=== PATIENT | male | born 1955 | race Caucasian/White ===

== ENCOUNTER 2016-08-01 22:03 | Inpatient (IN) ==
[2016-08-01] MEDS ORDERED: DECADRON 4 MG/ML SDV IM STA (22:20)
[2016-08-01] MEDS ORDERED: DUONEB NEB STA (22:20)
--- NOTE | 2016-08-01 22:25 | ED.PDOC ---
General ED Provider: Dr. TOMÁS STARK Chief Complaint: Shortness of Air Stated Complaint: Coughing congeted for couple day, getting sputum, more shortness of breath. Time Seen by Physician: 22:23 Mode of Arrival: Walk-In Information Source: Patient Primary Care Provider: RACHEL JULIEN Nursing and Triage Documentation Reviewed and Agree: Yes Respiratory Complaint Exam - Shortness of Air Complaint/Exam Symptoms Are: Still present Timing: Constant Initial Severity: Moderate Current Severity: Mild Character: Reports: Dyspnea at rest, Dyspnea on exertion Aggravating: Reports: Movement, URI Alleviating: Reports: None Associated Signs and Symptoms: Reports: Cough, Nasal congestion. Denies: Wheezing, Chest pain with cough, Chest pain, Fever, Chills, Diaphoresis, Dizziness, Calf pain, Calf swelling, Edema, Rapid breathing, Labored breathing, Decreased intake Related History: Reports: Similar episode History of Healthcare-Acquired Pneumonia: No Pulmonary Embolism Risk Factors: Reports: None Cardiac Risk Factors: Reports: CAD, Smoking, Elevated lipids Pseudomonas Risk Factors: Reports: None Tuberculosis Risk Factors: Reports: None Home Oxygen Use: Yes Recent Stress Test: No Recent Echo/LV Function: No Respiratory Distress: None Stridor Present: No Tracheal Deviation: No Subcutaneous Emphysema: No Accessory Muscle Use: No Retractions: Not Present Diminished Breath Sounds: No Prolonged Expiratory Phase: No Unable to Speak Full Sentences: No Fatigue: No Leg Swelling: No Differential Diagnoses: Pneumonia, Bronchitis Review of Systems - Review Of Systems Constitutional: Reports: Malaise, Weakness Eyes: Reports: No symptoms Ears, Nose, Mouth, Throat: Reports: No symptoms Respiratory: Reports: Cough, Short of air Cardiac: Reports: No symptoms GI: Reports: No symptoms : Reports: No symptoms Musculoskeletal: Reports: No symptoms Skin: Reports: No symptoms Neurological: Reports: No symptoms Endocrine: Reports: No symptoms Hematologic/Lymphatic: Reports: No symptoms All Other Systems: Reviewed and Negative Past Medical History - Past Medical History Previously Healthy: No Endocrine: Reports: DM 2 Cardiovascular: Reports: Hypertension Respiratory: Reports: COPD, Asthma Hematological: Reports: None Gastrointestinal: Reports: None Genitourinary: Reports: None Neuro/Psych: Reports: None Musculoskeletal: Reports: Arthritis, Back Pain Cancer: Reports: None Other Pertinent Past Medical History: HEART MURMUR/NECK PROBLEMS. - Surgical History General Surgical History: Reports: None - Family History Family History: Reports: Unknown - Social History Smoking Status: Current every day smoker Smoking Cessation Counseling Time: > 10 min Hx Substance Use: No Alcohol Screening: None - Immunizations Tetanus Shot up to Date: No (unsure) Physical Exam - Physical Exam Appearance: Ill-appearing Ill-appearing: Mild Eyes: JACIEL, EOMI, Conjunctiva clear ENT: Ears normal, Nose normal, Oropharynx normal Respiratory: Breath sounds diminished, Crackles, Wheezes Cardiovascular: RRR, Pulses normal, No rub, No murmur GI/: Soft, Nontender, No masses, Bowel sounds normal, No Organomegaly Musculoskeletal: Normal strength, ROM intact, No edema, No calf tenderness Skin: Warm, Dry, Normal color Neurological: Sensation intact, Motor intact, Reflexes intact, Cranial nerves intact, Alert, Oriented Psychiatric: Affect appropriate, Mood appropriate Interpretation - Radiology Interpretation Radiology Interpretation By: Radiologist Radiology Results: Positive Exam Interpreted: CT Scan Critical Care Note - Critical Care Note Total Time (mins): 0 Course - Course Hematology/Chemistry: 08/01/16 22:40 08/01/16 22:40 Orders, Labs, Meds: Lab Review 08/01/16 08/01/16 08/01/16 22:20 22:30 22:40 WBC 10.95 H RBC 4.94 Hgb 15.4 Hct 45.5 MCV 92.1 MCH 31.2 H MCHC 33.8 RDW Coeff of Kar 12.5 Plt Count 235 Immature Gran % (Auto) 0.6 Neut % (Auto) 73.7 Lymph % (Auto) 11.3 [place] % (Auto) 13.7 H Eos % (Auto) 0.4 Baso % (Auto) 0.3 Immature Gran # (Auto) 0.1 Neut # 8.1 H Lymph # 1.2 [place] # 1.5 Eos # 0.0 Baso # 0.0 Puncture Site Rb O2 Saturation 93.0 L ABG pH 7.363 ABG pCO2 53.1 H ABG pO2 70.0 L ABG HCO3 30.2 H ABG Total CO2 32 H ABG Base Excess 5 H Navi Test + O2 Delivery Device Nc Oxygen Liter Flow 2.50 FiO2 % 30.0 Sodium 137 Potassium 3.9 Chloride 99 Carbon Dioxide 31 Anion Gap 10.9 BUN 12 Creatinine 0.82 Estimated GFR (MDRD) 96.00 BUN/Creatinine Ratio 14.63 Glucose 281 H Lactic Acid 11.3 Calcium 8.9 Total Bilirubin 0.38 AST 20 ALT 21 Alkaline Phosphatase 94 Total Creatine Kinase 190 CK-MB (CK-2) 4.6 H CK-MB (CK-2) % 2.19639 Troponin I 0.0110 Total Protein 6.6 Albumin 3.5 Globulin 3.1 Albumin/Globulin Ratio 1.13 Procalcitonin < 0.05 Influenza A (Rapid) Negative Influenza B (Rapid) Negative Orders Category Date Time Status ABG DRAW REQUEST Stat CARDIO 08/01/16 22:21 Completed NEBULIZER TREATMENT Stat CARDIO 08/01/16 22:21 Completed ED IV/MEDIPORT/POWERPORT .ONCE EMERGENCY 08/01/16 22:56 Active ABG Stat LAB 08/01/16 22:20 Completed BLOOD CULTURE Stat LAB 08/01/16 22:40 Received CBC W/ AUTO DIFF Stat LAB 08/01/16 22:40 Completed COMPREHENSIVE METABOLIC PANEL Stat LAB 08/01/16 22:40 Completed CREATINE KINASE Stat LAB 08/01/16 22:40 Completed LACTIC ACID Stat LAB 08/01/16 22:40 Completed PROCALCITONIN Stat LAB 08/01/16 22:40 Completed RAPID FLU A/B Stat LAB 08/01/16 22:30 Completed SPUTUM CULTURE Stat LAB 08/01/16 22:56 Uncollected TROPONIN I Stat LAB 08/01/16 22:40 Completed 0.9 % Sodium Chloride [Saline Flush] MEDS 08/01/16 22:56 Ordered 1 syr IVF PRN PRN Ceftriaxone Sodium [Rocephin] 1 gm MEDS 08/01/16 22:56 Discontinued 0.9 % Sodium Chloride [Sodium Chloride] 100 ml IV ONCE Dexamethasone 4 mg/ml Inj [Decadron 4 mg/ml Sdv] MEDS 08/01/16 22:20 Discontinued 4 mg IM ONCE STA Ipratropium/Albuterol Neb [Duoneb] MEDS 08/01/16 22:20 Discontinued 1 vial NEB ONCE STA CT CHEST W/O CONTRAST Stat RADS 08/01/16 22:20 Completed Medications Generic Name Dose Route Start Last Admin Trade Name Freq PRN Reason Stop Dose Admin Sodium Chloride 1 syr 08/01/16 22:56 Saline Flush IVF PRN PRN To flush IV Discontinued Medications Generic Name Dose Route Start Last Admin Trade Name Freq PRN Reason Stop Dose Admin Albuterol/Ipratropium 1 vial 08/01/16 22:20 08/01/16 22:50 Duoneb NEB 08/01/16 22:21 1 vial ONCE STA Administration Dexamethasone Sodium Phosphate 4 mg 08/01/16 22:20 08/01/16 22:38 Decadron 4 Mg/Ml Sdv IM 08/01/16 22:21 4 mg ONCE STA Administration Ceftriaxone Sodium 1 gm/ 100 mls @ 100 mls/hr 08/01/16 22:56 Sodium Chloride IV 08/01/16 23:55 ONCE STA Vital Signs: Temp Pulse Resp BP Pulse Ox 08/01/16 22:04 99.5 F 115 H 22 135/72 90 L Departure - Departure Time of Disposition: 00:06 Disposition: ADMITTED INPATIENT Discharge Problem: Pneumonia Qualifiers: Pneumonia type: due to unspecified organism Laterality: right Lung location: lower lobe of lung Qualifier Code: (J18.1) Lobar pneumonia, unspecified organism Instructions: Community Acquired Pneumonia (ED) Condition: Stable Pt referred to PMD for follow-up: No Allergies/Adverse Reactions: Allergies cephalexin monohydrate [From [employer]] Adverse Reaction (Verified 08/01/16 22:10) Rash Home Medications: Ambulatory Orders Albuterol Sulfate [Proair Hfa] 2 puff QID PRN 10/14/13 Metformin HCl [Metformin HCl] 1 tab PO BID 10/14/13 Empagliflozin [Jardiance] 25 mg PO DAILY 06/11/14 Tiotropium [employer] [Spiriva] 1 cap IH DAILY 06/11/14 Aspirin [Aspirin Chewable] 81 mg PO DAILYWM 08/01/15 Budesonide/Formoterol Fumarate [Symbicort 160-4.5 Mcg Inhaler] 2 puff IH BID Diltiazem HCl 60 mg PO BID 08/01/15 Losartan Potassium [Cozaar] 50 mg PO DAILY 08/01/15 Montelukast Sodium 10 mg PO DAILY 08/01/15 Disposition Discussed With: Patient, Family
[2016-08-01 22:45] LABS: BASOPHILS % (AUTO) 0.3 % (0.0-3.0); EOSINOPHILS % (AUTO) 0.4 % (0.0-7.0); HEMATOCRIT 45.5 % (42.0-52.0); HEMOGLOBIN 15.4 g/dl (14.0-18.0); IMMATURE GRANULOCYTE % (AUTO) 0.6 % (0.0-5.0); LYMPHOCYTES # (AUTO) 1.2 K/uL (0.60-3.4); LYMPHOCYTES % (AUTO) 11.3 (10.0-50.0); MEAN CORPUSCULAR HEMOGLOBIN 31.2 pg (27.0-31.0); MEAN CORPUSCULAR HGB CONC 33.8 (31.8-35.4); MEAN CORPUSCULAR VOLUME 92.1 fl (80.0-94.0); MONOCYTES # (AUTO) 1.5 K/uL (0.4-2.0); MONOCYTES % (AUTO) 13.7 (0-10); NEUTROPHILS # (AUTO) 8.1 K/ul (2.0-6.9); NEUTROPHILS % (AUTO) 73.7; PLATELET COUNT 235 10^3/uL (140-440); RED BLOOD COUNT 4.94 10^6/ul (4.70-6.10); WHITE BLOOD COUNT 10.95 K/ul (4.2-10.2)
[2016-08-01 22:52] LABS: FLU INTERNAL QC INTERNAL QC VALID; RAPID FLU A NEGATIVE (NEGATIVE); RAPID FLU B NEGATIVE (NEGATIVE)
--- NOTE | 2016-08-01 22:53 | CT ---
EXAM: CT chest without intravenous contrast 08/01/2016. Sagittal and coronal reformatted images ob tained HISTORY: Shortness of a air COMPARISON: 09/02/2015 FINDINGS: The heart size appears within normal limits. No pericardial effusion. Severe emphysematous changes. Consolidation is present throughout the peripheral aspect of the righ t lower lobe. This most likely represents pneumonia. Other etiologies are not excluded. Follow-up is recommended following appropriate medical management to document resolution. Partially limited examination due to the lack of intravenous contrast. Limited views of the upper abdomen show no acute abnormality. IMPRESSION: 1. Right lower lobe consolidation most likely due to pneumonia. Other etiologies not excluded. Fo llow-up advised following appropriate medical management to document resolution. 2. Emphysema.
[2016-08-01] MEDS ORDERED: ROCEPHIN 1 GM in SODIUM CHLORIDE 100 ML IV STA (22:56)
[2016-08-01 22:57] LABS: ABG BASE EXCESS 5 (-2.0-2.0); ABG PCO2 53.1 mmHg (35-45); ABG PH 7.363 (7.35-7.45)
[2016-08-01 22:58] LABS: ABG HCO3 30.2 (22.0-26.0); ABG TCO2 32 (22.0-28.0)
[2016-08-01 23:21] LABS: ALBUMIN 3.5 g/dL (3.4-5.0); ALBUMIN/GLOBULIN RATIO 1.13; ANION GAP 10.9; BILIRUBIN,TOTAL 0.38 mg/dL (0.00-1.20); BUN/CREATININE RATIO 14.63; CALCIUM 8.9 mg/dL (8.2-10.2); CREATININE 0.82 mg/dL (0.60-1.10); POTASSIUM 3.9 mmol/L (3.5-5.1); TOTAL PROTEIN 6.6 g/dL (5.8-8.1); TROPONIN I 0.011 ng/ml (0.0000-0.4000)
[2016-08-01 23:25] LABS: CREATINE KINASE MB 4.6 ng/ml (0.0-3.6)
[2016-08-02] MEDS ORDERED: ROCEPHIN ONE (00:05)
[2016-08-02] MEDS ORDERED: TYLENOL PO PRN (00:07)
[2016-08-02] MEDS ORDERED: ROCEPHIN 1 GM in SODIUM CHLORIDE 100 ML IV STA (00:10)
[2016-08-02] MEDS ORDERED: SODIUM CHLORIDE 1,000 ML IV SCH (00:30)
[2016-08-02 02:15] VITALS: BMI 25.8
[2016-08-02] MEDS: SOLU-MEDROL 125 MG IVP SCH ×3 (04:50→20:46)
[2016-08-02] MEDS: DUONEB NEB SCH ×4 (05:18→22:20)
[2016-08-02] MEDS: HUMULIN R SUBCUT PRN ×4 (06:20→20:39)
[2016-08-02 06:44] LABS: BASOPHILS % (AUTO) 0.2 % (0.0-3.0); HEMATOCRIT 48.5 % (42.0-52.0); HEMOGLOBIN 16.1 g/dl (14.0-18.0); IMMATURE GRANULOCYTE % (AUTO) 0.7 % (0.0-5.0); LYMPHOCYTES # (AUTO) 0.6 K/uL (0.60-3.4); LYMPHOCYTES % (AUTO) 5.8 (10.0-50.0); MEAN CORPUSCULAR HEMOGLOBIN 30.5 pg (27.0-31.0); MEAN CORPUSCULAR HGB CONC 33.2 (31.8-35.4); MEAN CORPUSCULAR VOLUME 91.9 fl (80.0-94.0); MONOCYTES # (AUTO) 0.2 K/uL (0.4-2.0); MONOCYTES % (AUTO) 2.1 (0-10); NEUTROPHILS # (AUTO) 9.7 K/ul (2.0-6.9); NEUTROPHILS % (AUTO) 91.2; PLATELET COUNT 261 10^3/uL (140-440); RED BLOOD COUNT 5.28 10^6/ul (4.70-6.10); WHITE BLOOD COUNT 10.64 K/ul (4.2-10.2)
[2016-08-02 07:04] LABS: ALBUMIN 3.7 g/dL (3.4-5.0); ALBUMIN/GLOBULIN RATIO 1.03; ANION GAP 13.6; BILIRUBIN,TOTAL 0.37 mg/dL (0.00-1.20); CALCIUM 9.5 mg/dL (8.2-10.2); CREATININE 0.8 mg/dL (0.60-1.10); POTASSIUM 4.6 mmol/L (3.5-5.1); TOTAL PROTEIN 7.3 g/dL (5.8-8.1)
[2016-08-02 07:18] LABS: TROPONIN I 0.016 ng/ml (0.0000-0.4000)
[2016-08-02 07:19] LABS: CREATINE KINASE MB 4.3 ng/ml (0.0-3.6)
[2016-08-02] MEDS: SPIRIVA IH SCH (08:28)
[2016-08-02] MEDS: SYMBICORT 160-4.5 MCG INHALER IH SCH ×2 (08:29→20:39)
[2016-08-02] MEDS: ZITHROMAX 500 MG in SODIUM CHLORIDE 250 ML IV SCH (08:31)
[2016-08-02] MEDS: LOVENOX SUBCUT SCH (08:33)
[2016-08-02] MEDS: ASPIRIN CHEWABLE PO SCH (08:35)
[2016-08-02] MEDS: GLUCOPHAGE PO SCH ×2 (08:35→17:04)
[2016-08-02] MEDS: NON-FORMULARY MEDICATION (Empagliflozin [Jardiance] 25 MG) PO SCH (08:37)
[2016-08-02] MEDS: COZAAR PO SCH (08:37)
[2016-08-02] MEDS: CARDIZEM PO SCH ×2 (08:37→20:39)
[2016-08-02] MEDS: SINGULAIR PO SCH (08:37)
[2016-08-02] MEDS ORDERED: METFORMIN HCL PO SCH ×21 (09:00)
--- NOTE | 2016-08-02 09:26 | HP ---
DATE OF SERVICE: 08/02/16 REASON FOR HOSPITALIZATION: Right lower lobe pneumonia. HISTORY OF PRESENT ILLNESS: This 61 year old WHITE/ M was hospitalized 08/02/16. The patient presented to the emergency room with shortness of breath that had been present for a couple of days. The patient is hospitalized with right lower lobe pneumonia. The patient got acutely short of breath in the a.m. and came in on , seen by ER attending and was noted to have right lower lobe pneumonia. The patient seems comfortable this morning. REVIEW OF SYSTEMS: CONSTITUTIONAL: Fatigue. No night sweats. No fever or chills. HEENT: Eyes: No visual changes. No eye pain. No eye discharge. ENT: No runny nose. No epistaxis. No sinus pain. No sore throat. No odynophagia. No ear pain. No congestion. RESPIRATORY: Mild cough with congestion. No hemoptysis. CARDIOVASCULAR: Pleuritic type of chest pain, right-sided. Shortness of breath. No angina symptoms. No CHF symptoms. No palpitations. GASTROINTESTINAL: Decreased appetite. No abdominal pain. No nausea or vomiting. No diarrhea or constipation. No hematemesis. No hematochezia. GENITOURINARY: No urgency. No frequency. No dysuria. No hematuria. No obstructive symptoms. No discharge. No pain. No significant abnormal bleeding. MUSCULOSKELETAL: No musculoskeletal pain. No joint swelling. No arthritis. NEUROLOGICAL: No headache. No neck pain. No syncope. No seizures. No dizziness. PSYCHIATRIC: Not anxious. No depression. No suicidal thoughts. No homicidal thoughts. SKIN: No rash. No lesions. No wounds. ENDOCRINE: No unexplained weight loss. No weight gain. HEMATOLOGIC/LYMPHATIC: No anemia. No purpura. No petechiae. No prolonged or excessive bleeding. No palpable lymph nodes. PERSONAL/FAMILY/SOCIAL HISTORY: The patient is , lives with . Nonsmoker; no alcohol abuse. The patient does all activities of daily living. He is disabled from chronic lung disease and is on home oxygen. FH: Hypertension; [place]. Father had bronchitis. Son had leukemia, in remission. PAST MEDICAL/SURGICAL PROBLEMS: 1. History of severe chronic lung disease 2. Heavy smoking 3. Diabetes mellitus 4. Hypertension 5. Dyslipidemia 6. Generalized osteoarthritis involving cervical area 7. Cervical fusion, September 2015 MEDICATIONS: (Home) Albuterol (ProAir) two puffs q.i.d. p.r.n. Metformin 1,000 mg one tab p.o. b.i.d. Tiotropium (Spiriva) one cap IH daily Empagliflozin (Jardiance) 25 mg p.o. daily Losartan (Cozaar) 50 mg p.o. daily Budesonide/Formoterol (Symbicort) two puff IH b.i.d. Montelukast Sodium 10 mg p.o. daily Diltiazem 60 mg p.o. b.i.d. Aspirin 81 mg p.o. daily with meal ALLERGIES: CEPHALEXIN MONOHYDRATE PHYSICAL EXAMINATION: GENERAL: The patient is awake, alert, oriented times three, lying in bed in no distress. VITAL SIGNS: Temperature 97.5 F, Pulse 84, Respiratory Rate 18, BP 131/70, Pulse Ox 89% HEENT: Head normocephalic, atraumatic. Eyes: Extraocular muscles are intact. Pupils are equal, round and reactive to light and accommodation. Ears: No lesions. Nose appeared normal. Throat: No exudate or erythema. NECK: Supple. No JVD, no carotid bruit. No lymphadenopathy or thyromegaly. LUNGS: Decreased breath sounds bilaterally. Mild wheeze with good air entry. Percussion note normal. Chest symmetrical. HEART: S1, S2, no S3. No murmurs. No cyanosis or clubbing. No ascites. Pulses: Dorsalis pedis and posterior tibial pulses +1 both sides. ABDOMEN: Soft. Nontender. Bowel sounds active. No CVA tenderness. No mass felt. EXTREMITIES: No pedal edema. Full range of motion of all extremities, equal. NEUROLOGIC: No focal deficit. Cranial nerves II through XII are grossly intact. No headache, no double vision or headache. SKIN: Not dry. Intact. Turgor - normal. LYMPHATIC: No palpable lymph nodes/no lymphedema. MUSCULOSKELETAL: Normal joints with no swelling. Muscle tone is normal. LAB REVIEW: 08/02/16 06:42: WBC 10.64 H, RBC 5.28, Hgb 16.1, Hct 48.5, MCV 91.9, MCH 30.5, MCHC 33.2, RDW Coeff of Kar 12.5, Plt Count 261, Immature Gran % (Auto) 0.7, Neut % (Auto) 91.2, Lymph % (Auto) 5.8 L, [place] % (Auto) 2.1, Eos % (Auto) 0.0, Baso % (Auto) 0.2, Immature Gran # (Auto) 0.1, Neut # 9.7 H, Lymph # 0.6, [place] # 0.2 L, Eos # 0.0, Baso # 0.0, Sodium 140, Potassium 4.6, Chloride 101, Carbon Dioxide 30, Anion Gap 13.6, BUN 12, Creatinine 0.80, Estimated GFR (MDRD) 98.00 , BUN/Creatinine Ratio 15.00, Glucose 305 H, Calcium 9.5, Total Bilirubin 0.37, AST 19, ALT 22, Alkaline Phosphatase 103, Total Creatine Kinase 177, CK-MB (CK-2 ) 4.3 H, CK-MB (CK-2) % 2.64708, Troponin I 0.0160, Total Protein 7.3, Albumin 3.7, Globulin 3.6, Albumin/Globulin Ratio 1.03 ASSESSMENT: 1. Right lower lobe pneumonia 2. Severe chronic lung disease with history of smoking 3. Cor pulmonale 4. Diabetes mellitus 5. Hypertension 6. Dyslipidemia PLAN: 1. Continue IV antibiotics 2. Lovenox 3. Steroids 4. Azithromycin 5. Continue Cardizem and Cozaar 6. Keep legs elevated at rest 7. D/C NS 8. Nebs treatment 9. A1C 10. Accu-Check with sliding scale CONDITION: Stable TIME SPENT: More than 70 minutes. SCRIBED BY: JEISON LUQUE Geologic Technician scribed while in presence of service performed by Dr. RACHEL JULIEN on 08/02/16 ([id number]) [facility]
[2016-08-02 15:46] LABS: CREATINE KINASE 190 U/L
[2016-08-02 15:49] LABS: CREATINE KINASE MB 6.4 ng/ml (0.0-3.6)
[2016-08-02] MEDS: ROCEPHIN 1 GM in SODIUM CHLORIDE 100 ML IV SCH (20:39)
[2016-08-03] MEDS: SOLU-MEDROL 125 MG IVP SCH ×3 (05:02→21:05)
[2016-08-03] MEDS: DUONEB NEB SCH ×4 (05:09→23:13)
[2016-08-03 05:34] LABS: ALBUMIN 3.4 g/dL (3.4-5.0); ALBUMIN/GLOBULIN RATIO 1.13; ANION GAP 14.2; BILIRUBIN,TOTAL 0.22 mg/dL (0.00-1.20); BUN/CREATININE RATIO 22.72; CALCIUM 9.9 mg/dL (8.2-10.2); CREATININE 0.88 mg/dL (0.60-1.10); POTASSIUM 4.2 mmol/L (3.5-5.1); TOTAL PROTEIN 6.4 g/dL (5.8-8.1)
[2016-08-03 05:53] LABS: BASOPHILS % (AUTO) 0.1 % (0.0-3.0); HEMATOCRIT 42.5 % (42.0-52.0); HEMOGLOBIN 14.2 g/dl (14.0-18.0); IMMATURE GRANULOCYTE % (AUTO) 0.7 % (0.0-5.0); LYMPHOCYTES # (AUTO) 0.8 K/uL (0.60-3.4); LYMPHOCYTES % (AUTO) 4.2 (10.0-50.0); MEAN CORPUSCULAR HEMOGLOBIN 30.7 pg (27.0-31.0); MEAN CORPUSCULAR HGB CONC 33.4 (31.8-35.4); MEAN CORPUSCULAR VOLUME 91.8 fl (80.0-94.0); MONOCYTES # (AUTO) 0.9 K/uL (0.4-2.0); MONOCYTES % (AUTO) 4.6 (0-10); NEUTROPHILS # (AUTO) 17.4 K/ul (2.0-6.9); NEUTROPHILS % (AUTO) 90.4; PLATELET COUNT 280 10^3/uL (140-440); RED BLOOD COUNT 4.63 10^6/ul (4.70-6.10)
[2016-08-03] MEDS: HUMULIN R SUBCUT PRN ×4 (05:57→21:19)
[2016-08-03 05:58] LABS: WHITE BLOOD COUNT 19.31 K/ul (4.2-10.2)
[2016-08-03] MEDS: ASPIRIN CHEWABLE PO SCH (08:30)
[2016-08-03] MEDS: CARDIZEM PO SCH ×2 (08:30→21:04)
[2016-08-03] MEDS: COZAAR PO SCH (08:30)
[2016-08-03] MEDS: GLUCOPHAGE PO SCH ×2 (08:31→17:37)
[2016-08-03] MEDS: LOVENOX SUBCUT SCH (08:31)
[2016-08-03] MEDS: NON-FORMULARY MEDICATION (Empagliflozin [Jardiance] 25 MG) PO SCH (08:31)
[2016-08-03] MEDS: SINGULAIR PO SCH (08:32)
[2016-08-03] MEDS: SPIRIVA IH SCH (08:32)
[2016-08-03] MEDS: SYMBICORT 160-4.5 MCG INHALER IH SCH ×2 (08:33→21:04)
[2016-08-03] MEDS: ZITHROMAX 500 MG in SODIUM CHLORIDE 250 ML IV SCH (08:38)
[2016-08-03 08:54] LABS: ABG PCO2 46.6 mmHg (35-45); ABG PH 7.398 (7.35-7.45)
[2016-08-03 08:56] LABS: ABG BASE EXCESS 4 (-2.0-2.0); ABG HCO3 28.7 (22.0-26.0); ABG TCO2 30 (22.0-28.0)
--- NOTE | 2016-08-03 10:43 | PCM.PROG ---
Attending Provider: ATTENDING PROVIDER: Dr. RACHEL JULIEN DATE OF SERVICE: 08/03/16 SUBJECTIVE: This 61 year old WHITE/ M was hospitalized 08/02/16. The patient is hospitalized with right lower lobe pneumonia. Condition has improved remarkably. The patient is feeling better. REVIEW OF SYSTEMS: CONSTITUTIONAL: No night sweats. No fatigue, malaise, lethargy. No fever or chills. HEENT: Eyes: No visual changes. No eye pain. No eye discharge. ENT: No runny nose. No epistaxis. No sinus pain. No odynophagia. No congestion. RESPIRATORY: No cough, no congestion. No hemoptysis. CARDIOVASCULAR: No angina symptoms. No CHF symptoms. No atypical chest pain for CAD. No palpitations. No shortness of breath. GASTROINTESTINAL: No abdominal pain. No nausea or vomiting. No diarrhea or constipation. No hematemesis. No hematochezia. GENITOURINARY: No urgency. No frequency. No dysuria. No hematuria. No obstructive symptoms. No discharge. No pain. No significant abnormal bleeding. MUSCULOSKELETAL: No musculoskeletal pain; no joint swelling. NEUROLOGICAL: Awake, alert, oriented to time, place and person. No headache. No neck pain. No syncope. No seizures. No dizziness. PSYCHIATRIC: Not anxious. No depression. No suicidal thoughts. No homicidal thoughts. SKIN: No rash. No lesions. No wounds. ENDOCRINE: No unexplained weight loss. No weight gain. HEMATOLOGIC/LYMPHATIC: No anemia. No purpura. No petechiae. No prolonged or excessive bleeding. No palpable lymph nodes. PHYSICAL EXAMINATION: GENERAL: The patient is awake, alert and oriented, sitting in bed in no distress. VITAL SIGNS: Temperature 97.1 F, Pulse 109, Respiratory Rate 20, BP 144/63, Pulse Ox 91% HEENT: Head normocephalic, atraumatic. Eyes: Extraocular muscles are intact. Pupils are equal, round and reactive to light and accommodation. Ears: No lesions. Nose appeared normal. Throat: No exudate or erythema. NECK: Supple. No JVD, no carotid bruit. No lymphadenopathy or thyromegaly. LUNGS: Decreased breath sounds. No wheezing. Percussion note normal. Chest symmetrical. HEART: S1, S2, no S3. No murmurs. No cyanosis or clubbing. No ascites. Pulses: Dorsalis pedis and posterior tibial pulses +1 to +2 both sides. ABDOMEN: Soft. Non-tender. Bowel sounds active. No CVA tenderness. No mass felt. EXTREMITIES: No edema. Full range of motion of all extremities, equal. NEUROLOGIC: No focal deficit. Cranial nerves II through XII are grossly intact. No headache, no double vision or headache. SKIN: Not dry. Intact. Turgor-normal. LYMPHATIC: No palpable lymph nodes/no lymphedema. MUSCULOSKELETAL: Normal joints with no swelling. Muscle tone is normal. LAB REVIEW: 08/03/16 04:59 08/03/16 04:59 08/03/16 04:59: WBC 19.31 H D, RBC 4.63 L, Hgb 14.2, Hct 42.5 D, MCV 91.8, MCH 30.7, MCHC 33.4, RDW Coeff of Kar 12.7, Plt Count 280, Immature Gran % (Auto) 0.7, Neut % (Auto) 90.4, Lymph % (Auto) 4.2 L, [place] % (Auto) 4.6, Eos % (Auto) 0.0, Baso % (Auto) 0.1, Immature Gran # (Auto) 0.1, Neut # 17.4 H, Lymph # 0.8, [place] # 0.9, Eos # 0.0, Baso # 0.0, Sodium 140, Potassium 4.2, Chloride 102, Carbon Dioxide 28, Anion Gap 14.2, BUN 20 H, Creatinine 0.88, Estimated GFR ( MDRD) 88.00, BUN/Creatinine Ratio 22.72, Glucose 432 H D, Calcium 9.9, Total Bilirubin 0.22, AST 17, ALT 21, Alkaline Phosphatase 84, Total Protein 6.4, Albumin 3.4, Globulin 3.0, Albumin/Globulin Ratio 1.13 08/02/16 14:45: Total Creatine Kinase 190, CK-MB (CK-2) 6.4 H*, CK-MB (CK-2) % 3.98645, Troponin I < 0.0100 08/02/16 06:35: Hemoglobin A1c 7.0 H ASSESSMENT: 1. Pneumonia resolving clinically 2. Respiratory failure 3. Cor pulmonale 4. Diabetes mellitus PLAN: 1. PFT 2. Sleep study as an outpatient 3. ABG on room air 4. Pulmonary rehab referral 5. Discussed weight loss, diet and exercise with the patient. Plan and coordination of the patient's care discussed in the presence of Hospitality Recruiter and nurse. EDUCATION: Discussion with the patient concerning steroids and their side effects to include avascular necrosis of femoral bone, cataracts, etc; diet counseling with need to lose 15 to 20 pounds as well as exercise daily. The patient voices understanding and is in agreement. CONDITION: Stable SCRIBED BY: JEISON LUQUE Master Motorcycle Technician scribed while in presence of service performed by Dr. RACHEL JULIEN on 08/03/16 ([id number])
[2016-08-03] MEDS: ROCEPHIN 1 GM in SODIUM CHLORIDE 100 ML IV SCH (21:04)
[2016-08-04 05:05] LABS: BASOPHILS % (AUTO) 0.1 % (0.0-3.0); HEMATOCRIT 42.6 % (42.0-52.0); HEMOGLOBIN 14.1 g/dl (14.0-18.0); IMMATURE GRANULOCYTE % (AUTO) 0.8 % (0.0-5.0); LYMPHOCYTES % (AUTO) 4.5 (10.0-50.0); MEAN CORPUSCULAR HEMOGLOBIN 30.4 pg (27.0-31.0); MEAN CORPUSCULAR HGB CONC 33.1 (31.8-35.4); MEAN CORPUSCULAR VOLUME 91.8 fl (80.0-94.0); MONOCYTES # (AUTO) 0.8 K/uL (0.4-2.0); MONOCYTES % (AUTO) 3.6 (0-10); NEUTROPHILS # (AUTO) 19.4 K/ul (2.0-6.9); PLATELET COUNT 293 10^3/uL (140-440); RED BLOOD COUNT 4.64 10^6/ul (4.70-6.10); WHITE BLOOD COUNT 21.36 K/ul (4.2-10.2)
[2016-08-04] MEDS: DUONEB NEB SCH (05:10)
[2016-08-04 05:28] LABS: ALBUMIN 3.7 g/dL (3.4-5.0); ALBUMIN/GLOBULIN RATIO 1.23; ANION GAP 16.3; BILIRUBIN,TOTAL 0.27 mg/dL (0.00-1.20); BUN/CREATININE RATIO 27.95; CALCIUM 9.7 mg/dL (8.2-10.2); CREATININE 0.93 mg/dL (0.60-1.10); POTASSIUM 4.3 mmol/L (3.5-5.1); TOTAL PROTEIN 6.7 g/dL (5.8-8.1)
[2016-08-04] MEDS: SOLU-MEDROL 125 MG IVP SCH (05:40)
[2016-08-04 05:44] VITALS: BP 131/61; TEMP 97.6
[2016-08-04] MEDS: HUMULIN R SUBCUT PRN (05:49)
[2016-08-04] MEDS: GLUCOPHAGE PO SCH (08:54)
[2016-08-04] MEDS: SINGULAIR PO SCH (08:54)
[2016-08-04] MEDS: ASPIRIN CHEWABLE PO SCH (08:54)
[2016-08-04] MEDS: CARDIZEM PO SCH (08:54)
[2016-08-04] MEDS: COZAAR PO SCH (08:54)
[2016-08-04] MEDS: SYMBICORT 160-4.5 MCG INHALER IH SCH (08:55)
[2016-08-04] MEDS: NON-FORMULARY MEDICATION (Empagliflozin [Jardiance] 25 MG) PO SCH (08:55)
[2016-08-04] MEDS: SPIRIVA IH SCH (08:55)
[2016-08-04] MEDS: LOVENOX SUBCUT SCH (08:55)
--- NOTE | 2016-08-04 09:33 | PCM.PROG ---
Attending Provider: ATTENDING PROVIDER: Dr. RACHEL JULIEN DATE OF SERVICE: 08/04/16 SUBJECTIVE: This 61 year old WHITE/ M was hospitalized 08/02/16. The patient is hospitalized with acute bronchitis/pneumonitis. The patient's condition has improved remarkably. Blood gases on room air are acceptable (done yesterday) with oxygen saturation of 90% on room air. Pseudomonas Aeruginosa grew in the sputum sensitive to Cipro. REVIEW OF SYSTEMS: CONSTITUTIONAL: No night sweats. No fatigue, malaise, lethargy. No fever or chills. HEENT: Eyes: No visual changes. No eye pain. No eye discharge. ENT: No runny nose. No epistaxis. No sinus pain. No odynophagia. No congestion. RESPIRATORY: Mild cough and congestion. No hemoptysis. CARDIOVASCULAR: No angina symptoms. No CHF symptoms. No atypical chest pain for CAD. No palpitations. No shortness of breath. GASTROINTESTINAL: No abdominal pain. No nausea or vomiting. No diarrhea or constipation. No hematemesis. No hematochezia. GENITOURINARY: No urgency. No frequency. No dysuria. No hematuria. No obstructive symptoms. No discharge. No pain. No significant abnormal bleeding. MUSCULOSKELETAL: No musculoskeletal pain; no joint swelling. NEUROLOGICAL: Awake, alert, oriented to time, place and person. No headache. No neck pain. No syncope. No seizures. No dizziness. PSYCHIATRIC: Not anxious. No depression. No suicidal thoughts. No homicidal thoughts. SKIN: No rash. No lesions. No wounds. ENDOCRINE: No unexplained weight loss. No weight gain. HEMATOLOGIC/LYMPHATIC: No anemia. No purpura. No petechiae. No prolonged or excessive bleeding. No palpable lymph nodes. PHYSICAL EXAMINATION: GENERAL: The patient is awake, alert and oriented, sitting in the chair in no distress. VITAL SIGNS: Temperature 97.6 F, Pulse 92, Respiratory Rate 18, BP 131/61, Pulse Ox 93% HEENT: Head normocephalic, atraumatic. Eyes: Extraocular muscles are intact. Pupils are equal, round and reactive to light and accommodation. Ears: No lesions. Nose appeared normal. Throat: No exudate or erythema. NECK: Supple. No JVD, no carotid bruit. No lymphadenopathy or thyromegaly. LUNGS: Decreased breath sounds. Clear to auscultation. Percussion note normal. Chest symmetrical. HEART: S1, S2, no S3. No murmurs. No cyanosis or clubbing. No ascites. Pulses: Dorsalis pedis and posterior tibial pulses +1 to +2 both sides. ABDOMEN: Soft. Non-tender. Bowel sounds active. No CVA tenderness. No mass felt. EXTREMITIES: No edema. Full range of motion of all extremities, equal. NEUROLOGIC: No focal deficit. Cranial nerves II through XII are grossly intact. No headache, no double vision or headache. SKIN: Not dry. Intact. Turgor-normal. LYMPHATIC: No palpable lymph nodes/no lymphedema. MUSCULOSKELETAL: Normal joints with no swelling. Muscle tone is normal. LAB REVIEW: 08/04/16 04:45 08/04/16 04:45 08/04/16 04:45: WBC 21.36 H, RBC 4.64 L, Hgb 14.1, Hct 42.6, MCV 91.8, MCH 30.4 , MCHC 33.1, RDW Coeff of Kar 12.8, Plt Count 293, Immature Gran % (Auto) 0.8, Neut % (Auto) 91.0, Lymph % (Auto) 4.5 L, [place] % (Auto) 3.6, Eos % (Auto) 0.0, Baso % (Auto) 0.1, Immature Gran # (Auto) 0.2, Neut # 19.4 H, Lymph # 1.0, [place] # 0.8, Eos # 0.0, Baso # 0.0, Sodium 141, Potassium 4.3, Chloride 102, Carbon Dioxide 27, Anion Gap 16.3, BUN 26 H, Creatinine 0.93, Estimated GFR (MDRD) 83.00, BUN/Creatinine Ratio 27.95, Glucose 321 H D, Calcium 9.7, Total Bilirubin 0.27, AST 27, ALT 31, Alkaline Phosphatase 82, Total Protein 6.7, Albumin 3.7, Globulin 3.0, Albumin/Globulin Ratio 1.23 08/03/16 08:18: Puncture Site Rr, O2 Saturation 90.0 L, ABG pH 7.398, ABG pCO2 46.6 H, ABG pO2 58.0 L*, ABG HCO3 28.7 H, ABG Total CO2 30 H, ABG Base Excess 4 H, Navi Test +, FiO2 % 21.0 ASSESSMENT: 1. Acute respiratory failure resolved. The patient is in chronic respiratory failure with home oxygen. 2. Sputum grew Pseudmonas Aeruginosa so willl treat with Cipro. 3. Chronic bronchitis 4. COPD 5. Diabetes mellitus PLAN: 1. Cipro 500 mg b.i.d for five days 2. Prednisone 10 mg b.i.d. for 5 days 3. Discharge home Plan and coordination of the patient's care discussed in the presence of Hazmat Cdl Driver and nurse. EDUCATION: Discussed steroids, risks and benefits with the side effects to include avascular necrosis of the femoral bone, cataracts, et cetera. The patient voiced understanding and is in agreement. CONDITION: Stable SCRIBED BY: JEISON LUQUE, Supervisor Frame Sample And Pattern scribed while in presence of service performed by Dr. RACHEL JULIEN on 08/04/16 ([id number])
[2016-08-04] MEDS: ZITHROMAX 500 MG in SODIUM CHLORIDE 250 ML IV SCH (09:46)
--- NOTE | 2016-08-08 11:47 | DS ---
DATE OF SERVICE: 08/04/16 FINAL DIAGNOSIS: 1. Community acquired pneumonia right lower lobe 2. Cor Pulmonale 3. Heart murmur 4. Severe chronic lung disease (current heavy smoker) 5. Diabetes Mellitus, type 2 6. Hypertension 7. Dyslipidemia 8. 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 Eye surgery (metal removal) LAST VITALS: Temperature 97.6, pulse 92, respiratory rate 22, blood pressure 131/61 and pulse ox 93%. DISCHARGE INSTRUCTIONS: Discharge the patient home today. Return to see Dr. Ross in 5-7 days. Please call to schedule followup appointment. Sleep study at [facility] outpatient sleep center (across the [place] from Dr. Ross's office) on 08/15/16 at 7pm. Please bring any medications that you usually take for that evening. The testing should be finished at 5am the next morning. Resume home medications as per the list provided by the nursing staff. MEDICATIONS AT DISCHARGE: ProAir 1 puff four times a day PRN Symbicort 160-4.5mcg inhaler 2 puff IG twice a day Cardizem 60mg PO twice a day Cozaar 50mg PO daily Glucophage 1,000mg twice a day Singulair 10mg PO daily Jardiance 25mg Po daily Spiriva 1 capsule IG daily ALLERGIES: Cephalexin NEW PRESCRIPTIONS: Prednisone 10mg take one tablet by mouth twice daily for give days, then take one daily for 5 days, then stop Take this medication with food Cipro 500mg take one tablet by mouth twice daily for 5 days Use oxygen at 2 liters nasal cannula continuously to keep SATS greater than or equal to 91% DIET INSTRUCTIONS: Consistent carbs Weight loss ACTIVITY: Uvaldo plenty of rest at home. Gradually increase activity level according to toleration. SMOKING: Heavy smoker The patient has received teaching regarding the benefits of smoking cessation and the added risk to his health with noncompliance. DISEASE SPECIFIC EDUCATION: Pneumonia COPD Weight loss Followup Homed medications New prescriptions Steroid use including risks such as bone demineralization and benefits LABS: Hgb 14, hct 42, WBC 19,000 normal differential, creatinine 0.8, BUN 20 and potassium 4.2. HOSPITAL COURSE: The patient is a 61 year old white male hospitalized with acute bronchitis and acute respiratory failure. The patient was recently treated with steroids, antibiotics and NEBS treatment and his condition improved remarkably. His sugars were out of control because of steroids and he also has diabetes which is more or less uncontrolled. In any case the patient was asked to join pulmonary rehab which he has agreed. He was advised to lose weight at least 10- 15 pounds and has abdominal obesity. Of course he is strongly advised to quit smoking which he has been doing it off and on. The patient's cardiovascular status was stable and the patient's leg edema is definitely from Cor Pulmonale and he was explained about this finding. He was advised to keep his legs up and also advise to restrict his fluid and salt intake. Condition at the time of discharge is stable. CONDITION: Stable TIME SPENT: More than 60 minutes. SILVINO
--- NOTE | 2016-08-08 11:49 | PN ---
08/02/16: Level 5 08/03/16: Intermediate 08/04/16: D as in discharge MTDD
== END 2016-08-04 10:14 | disposition home or self-care (01) | DRG 177 ==
LOC: ED 22:03 → MEDSURG B 08-02 00:26
PROVIDERS: ADMIT Internal Medicine; ATTEND Internal Medicine
DX: J15.1 Pneumonia due to Pseudomonas (principal); J96.20 Acute and chronic respiratory failure, unspecified whether with hypoxia or hypercapnia; I27.81 Cor pulmonale (chronic); R01.1 Cardiac murmur, unspecified; J44.9 Chronic obstructive pulmonary disease, unspecified; E11.9 Type 2 diabetes mellitus without complications; I10 Essential (primary) hypertension; E78.5 Hyperlipidemia, unspecified; M47.892 Other spondylosis, cervical region; F17.200 Nicotine dependence, unspecified, uncomplicated; Z98.1 Arthrodesis status; Z79.84 Long term (current) use of oral hypoglycemic drugs; Z79.899 Other long term (current) drug therapy
CPT/HCPCS: 36415; 80053; 82550; 82553; 82803; 82962; 83036; 83605; 84145; 84484; 85025; 87040; 87070; 87186; 87804; 93005; 93010; 94640; 96365; 96372; 99284

== ENCOUNTER 2016-08-15 16:30 | Outpatient (CLI) | END 2016-08-15 16:31 | disposition home or self-care (01) | LOC: CAR 16:30 | PROVIDERS: ATTEND Internal Medicine | DX: R40.0 Somnolence (principal); R06.83 Snoring | CPT/HCPCS: 95810 ==

== ENCOUNTER 2016-08-24 10:38 | Outpatient (RCR) ==
[2016-08-24 11:38] VITALS: BP 118/56
== END 2016-09-03 ==
LOC: CAR.REHAB 10:38
PROVIDERS: ATTEND Internal Medicine
DX: J44.9 Chronic obstructive pulmonary disease, unspecified (principal); I27.81 Cor pulmonale (chronic)

== ENCOUNTER 2016-09-04 09:01 | Outpatient (RCR) ==
[2016-09-28 11:52] VITALS: BP 120/54
== END 2016-10-04 ==
LOC: PUL.REHAB 09:01
PROVIDERS: ATTEND Internal Medicine
DX: J44.9 Chronic obstructive pulmonary disease, unspecified (principal); I27.81 Cor pulmonale (chronic)

== ENCOUNTER 2016-09-27 11:14 | Outpatient (CLI) ==
--- NOTE | 2016-09-27 12:43 | CT ---
EXAM: CT chest without contrast HISTORY: Follow up pneumonia COMPARISON: CT chest 08/01/2016 TECHNIQUE: Serial axial images of the chest were obtained from the lung apices to the upper abdomen without contrast. These were viewed in multiple planes. FINDINGS: The thyroid is normal. The visualized vessels are unremarkable without aneurysm or steno sis. The heart is normal in size without pericardial effusion. There are nonpathologically enlarge d mediastinal and hilar lymph nodes. There is a calcified left hilar lymph node.. There is no pneumothorax or pleural effusion. There is moderate unchanged emphysematous disease. T here are patchy peripheral consolidations in the right lung base which have mildly changed since nuvia or examination. No additional consolidation or mass is identified. The airways are patent. Soft tissues in the upper abdomen are limited with no acute abnormality identified. Osseous structu res are unremarkable. IMPRESSION: 1. Minimal change in patchy consolidations in the right lower lobe in comparison to 08/01/2016. Fi ndings may represent pneumonia versus chronic inflammatory process. 2. Stable emphysematous disease.
== END 2016-09-27 11:15 | disposition home or self-care (01) ==
LOC: RAD 11:14
PROVIDERS: ATTEND Internal Medicine Pulmonary Disease
DX: J18.9 Pneumonia, unspecified organism (principal)

== ENCOUNTER 2016-10-05 06:52 | Outpatient (RCR) ==
[2016-11-02 11:51] VITALS: BP 128/66
== END 2016-11-03 ==
LOC: PUL.REHAB 06:52
PROVIDERS: ATTEND Internal Medicine
DX: J44.9 Chronic obstructive pulmonary disease, unspecified (principal); I27.81 Cor pulmonale (chronic)

== ENCOUNTER 2016-11-06 07:50 | Outpatient (RCR) ==
[2016-11-21 11:51] VITALS: BP 146/64
== END 2016-12-04 ==
LOC: PUL.REHAB 07:50
PROVIDERS: ATTEND Internal Medicine
DX: J44.9 Chronic obstructive pulmonary disease, unspecified (principal); I27.81 Cor pulmonale (chronic)

== ENCOUNTER 2016-12-05 07:00 | Outpatient (RCR) ==
[2017-01-04 11:55] VITALS: BP 118/62
== END 2017-01-04 ==
LOC: PUL.REHAB 07:00
PROVIDERS: ATTEND Internal Medicine
DX: J44.9 Chronic obstructive pulmonary disease, unspecified (principal); I27.81 Cor pulmonale (chronic)

== ENCOUNTER 2017-01-05 08:31 | Outpatient (RCR) ==
[2017-02-01 11:41] VITALS: BP 144/58
== END 2017-02-03 ==
LOC: PUL.REHAB 08:31
PROVIDERS: ATTEND Internal Medicine
DX: J44.9 Chronic obstructive pulmonary disease, unspecified (principal); I27.81 Cor pulmonale (chronic)

== ENCOUNTER 2017-02-22 08:56 | Outpatient (CLI) ==
--- NOTE | 2017-02-22 10:08 | CT ---
Exam: CT of the abdomen pelvis with intravenous contrast. Comparison: 08/10/2011. Reason for exam: Constipation. FINDINGS: Ground-glass / inflammatory changes in the right lung base. No pleural effusion, or focal consolidation. The liver, gallbladder, spleen, adrenal glands, and pancreas appear grossly unremarkable. There are multiple renal hypodensities in both kidneys that are statistically cysts. No hydronephros is, nephrolithiasis, or hydroureter is seen in either kidney. No focal small bowel dilatation or transition point. The appendix is unremarkable. No intra-abdominal free air or pelvic free fluid. There is a small only fat containing periumbilical hernia. Degenerative disease is seen in the lumbar spine with intervertebral body disc space height loss L4-L 5. No suspicious appearing osteoblastic or osteolytic lesions. The bladder appears grossly unremarkable. The prostate is prominent in size causing impression on the posterior urinary bladder. Impression: 1. No acute inflammatory findings are seen within the abdomen or pelvis. 2. Prostatic enlargement. 3. Minimal ground-glass / inflammatory changes in the right lung base. 4. Multiple renal hypodensities are statistically cysts. If clinical concern exists, ultrasonograph ic evaluation may be performed for further characterization.
== END 2017-02-22 08:57 | disposition home or self-care (01) ==
LOC: RAD 08:56
PROVIDERS: ATTEND Internal Medicine
DX: I27.81 Cor pulmonale (chronic) (principal); K59.00 Constipation, unspecified

== ENCOUNTER 2017-02-26 06:47 | Outpatient (CLI) ==
--- NOTE | 2017-02-26 13:36 | ECHO2D ---
Date of Exam: 02/26/17 Ordering Physician: RACHEL JULIEN Reason for Echo: COR PULMONALE, SOB M-Mode Normal Adult Results LV Dimensions Normal Adult Results AoV Opening excursions >1.6 >1.6 LVEDD-base- 3.5-5.8 5.0 Ao root dimensions 2.0-3.7 3.1 LVESD-base- 3.1-4.6 L. Atrium dimensions 1.9-3.8 3.2 Post. Wall thickness 0.8-1.1 1.2 IV septum (thickness) 0.7-1.2 1.2 Post. Wall excursion 0.72-1.3 NORMAL Septal motion NORMAL Systolic motion R. Ventricular cavity 1.5-2.0 NORMAL LVEF 60% 40 TO 45% Paradoxical septal wall motion NORMAL 2-D : MITRAL VALVE PROLAPSE NOTED LEFT PARASTERNAL LONG AXIS AND APICAL FOUR CHAMBER VIEW. HYPOKINETIC SEPTUM, NO EFFUSION, NO THROMBUS, NORMAL LEFT VENTRICLE AND LEFT ATRIAL SIZE M-MODE: MV: MITRAL VALVE PROLAPSE LATE SYSTOLIC AV: NORMAL TV: NORMAL PV: NORMAL CHAMBER SIZE: ENLARGED RIGHT VENTRICLE CAVITY WALL MOTION: HYPOKINETIC SEPTUM PERICARDIUM: NORMAL INTERPRETATION: 1. HYPOKINETIC SEPTUM--LEFT VENTRICLE EJECTION FRACTION 40 TO 45% 2. LEFT VENTRICULAR HYPERTROPHY -BORDERLINE 3. MITRAL VALVE PROLAPSE LATE SYSTOLIC 4. NORMAL LEFT ATRIAL AND LEFT VENTRICLE SIZE 5. ENLARGED RIGHT VENTRICLE CAVITY MTDD
== END 2017-02-26 06:48 | disposition home or self-care (01) ==
LOC: CAR 06:47
PROVIDERS: ATTEND Internal Medicine
DX: R06.02 Shortness of breath (principal); I27.81 Cor pulmonale (chronic)

== ENCOUNTER 2017-03-07 07:38 | Outpatient (RCR) ==
[2017-03-15 11:49] VITALS: BP 128/58
== END 2017-04-05 ==
LOC: PUL.REHAB 07:38
PROVIDERS: ATTEND Internal Medicine
DX: J44.9 Chronic obstructive pulmonary disease, unspecified (principal); I27.81 Cor pulmonale (chronic)

== ENCOUNTER 2017-04-06 07:15 | Outpatient (RCR) ==
[2017-05-03 11:48] VITALS: BP 130/56
== END 2017-05-06 ==
LOC: PUL.REHAB 07:15
PROVIDERS: ATTEND Internal Medicine
DX: J44.9 Chronic obstructive pulmonary disease, unspecified (principal); I27.81 Cor pulmonale (chronic)

== ENCOUNTER 2017-05-08 07:06 | Outpatient (RCR) | END 2017-06-06 | LOC: PUL.REHAB 07:06 | PROVIDERS: ATTEND Internal Medicine | DX: J44.9 Chronic obstructive pulmonary disease, unspecified (principal); I27.81 Cor pulmonale (chronic) ==

== ENCOUNTER 2017-06-07 07:04 | Outpatient (RCR) ==
[2017-07-03 11:51] VITALS: BP 142/58
== END 2017-07-04 ==
LOC: PUL.REHAB 07:04
PROVIDERS: ATTEND Internal Medicine
DX: J44.9 Chronic obstructive pulmonary disease, unspecified (principal); I27.81 Cor pulmonale (chronic)

== ENCOUNTER 2017-07-05 06:45 | Outpatient (RCR) ==
[2017-07-19 11:41] VITALS: BP 124/56
== END 2017-08-02 14:35 | disposition home or self-care (01) ==
LOC: PUL.REHAB 06:45
PROVIDERS: ATTEND Internal Medicine
DX: J44.9 Chronic obstructive pulmonary disease, unspecified (principal); I27.81 Cor pulmonale (chronic)

== ENCOUNTER 2017-07-19 06:40 | Outpatient (CLI) | END 2017-07-19 06:41 | disposition home or self-care (01) | LOC: CAR 06:40 | PROVIDERS: ATTEND Internal Medicine | DX: R07.9 Chest pain, unspecified (principal); R06.02 Shortness of breath ==

== ENCOUNTER 2017-07-20 06:50 | Outpatient (CLI) ==
[2017-07-20] MEDS: ATROPINE SULFATE PFS ONE (10:46)
[2017-07-20] MEDS: DOBUTAMINE 250 ML IV ONE (10:46)
--- NOTE | 2017-07-20 15:51 | NM ---
Cardiac Stress Test HISTORY: Shortness of breath. Chest pain. COMPARISON: None of this type. TECHNIQUE: Resting: The patient was injected with 3.6 millicuries of thallium 201 chloride intravenously after which a "resting" SPECT study of the heart was performed. Stress: The patient was stressed pharmacologically with dobutamine and at the appropriate time injec allan with 25.1 millicuries of 99m technetium Sestamibi (Cardiolite) after which a "stress" SPECT study of the heart was performed. Gated images of the heart were also obtained to assess wall motion and c alculate ejection fraction. For details of the stress protocol employed, reference is made to the se teee report of the performing physician. FINDINGS: The stress perfusion images demonstrate reduced activity in the apex extending into the an teroseptal wall segment. The remaining myocardium appears adequately perfused. The resting perfusion images demonstrate improved perfusion of a portion of the apical defect with extension into the ante roseptal wall. The left ventricular ejection fraction (LVEF) is 42%. IMPRESSION: 1. Left ventricular myocardial perfusion demonstrates a predominately fixed perfusion defect extendi ng from the apex into the anteroseptal wall segment with a small portion at the apex showing evidence of redistribution/ischemia. 2. The left ventricular ejection fraction (LVEF) is 42%.
--- NOTE | 2017-07-23 12:50 | DOBSTECHST ---
Ordering Physician: DR. RACHEL JULIEN Date of Test: 07/20/17 Reason for Examination: SOB, CHEST PAIN, DOBUTAMINE STRESS --NO ISCHEMIA Current Medications: METFORMIN, MONTELUKAST, DILTIAZEM, ASA, LOSARTAN, SYMBICORT , ALBUTEROL, SPIRIVA, TRAMADOL, JARDIANCE Height: 72" Weight: 186 LBS Target Heart Rate: 134/158 SAO2: 94% S-T Segment Stage Time HR BPM BP mmhg Rhythm +/- Elevation Depression Comments/ Symptoms Control Sitting 75 140/58 SR X NONE Dobutamine 250mg/D5W 5cmg/KG/mn 10cmg/KG/mn 3 MIN 96 152/64 SR X NONE 15cmg/KG/mn 2 MIN 100 SR X NONE 20cmg/KG/mn 2 MIN 106 144/60 SR X NONE 25cmg/KG/mn 2 MIN 118 SR X NONE 30cmg/KG/mn 1:37 125 144/60 SR X NONE 35cmg/KG/mn 40cmg/KG/mn Time: 3 " HR B/P Time: 7 " HR B/P Time: 10 HR B/P Recovery 105 160/60 Recovery 107 140/66 Recovery 88 Total Time: 10:37 Maximum Heart Rate Reached: 125 Interpretation: 1. NO EVIDENCE OF ISCHEMIA BY ST-T WAVE CHANGES (HEART RATE 75/MINUTE TO 125/ MINUTE WITH DOBUTAMINE INFUSION) 2. NO CHEST PAIN OR CHEST DISCOMFORT 3. LEFT VENTRICULAR CONTRACTILITY NORMAL--RESTING AND DURING DOBUTAMINE INFUSION MTDD
--- NOTE | 2017-07-23 12:52 | ECHOSTRESS ---
Date of Exam: 07/20/17 Ordering Physician: DR. RACHEL JULIEN Reason for Echo: SOB, CHEST PAIN, DOBUTAMINE STRESS--NO ISCHEMIA M-Mode Normal Adult Results LV Dimensions Normal Adult Results AoV Opening excursions >1.6 LVEDD-base- 3.5-5.8 Ao root dimensions 2.0-3.7 LVESD-base- 3.1-4.6 L. Atrium dimensions 1.9-3.8 Post. Wall thickness 0.8-1.1 IV septum (thickness) 0.7-1.2 Post. Wall excursion 0.72-1.3 Septal motion Systolic motion R. Ventricular cavity 1.5-2.0 LVEF 60% Paradoxical septal wall motion 2-D: NORMAL LEFT VENTRICULAR CONTRACTILITY--RESTING AND DURING DOBUTAMINE INFUSION M-MODE: MV: AV: TV: PV: CHAMBER SIZE: WALL MOTION: NORMAL LEFT VENTRICULAR CONTRACTILITY--RESTING AND DURING DOBUTAMINE INFUSION PERICARDIUM: INTERPRETATION: 1. NORMAL LEFT VENTRICULAR CONTRACTILITY--RESTING AND DURING DOBUTAMINE INFUSION MTDD
== END 2017-07-20 06:51 | disposition home or self-care (01) ==
LOC: CAR 06:50
PROVIDERS: ATTEND Internal Medicine
DX: R07.9 Chest pain, unspecified (principal); R06.02 Shortness of breath

== ENCOUNTER 2017-10-15 02:17 | Emergency (ER) ==
[2017-10-15 02:20] VITALS: BP 172/82; TEMP 97.5; BMI 25.0
--- NOTE | 2017-10-15 02:32 | ED.PDOC ---
General ED Provider: Dr. RUBEN BLANDON-ER Chief Complaint: Rash Stated Complaint: i sprayed and then i got this rash Time Seen by Physician: 02:30 Mode of Arrival: Walk-In Information Source: Patient, Family Exam Limitations: No limitations Primary Care Provider: RACHEL JULIEN Nursing and Triage Documentation Reviewed and Agree: Yes Reviewed sepsis parameters & appropriate labs ordered?: Yes System Inflammatory Response Syndrome: Not Applicable Sepsis Protocol: For patient's 13 years and over: Temp is 96.8 and below OR 101 and greater Pulse >90 BPM Resp >20/minute Acutely Altered Mental Status Are patient's symptoms suggestive of a new infection, such as: -Pneumonia -Skin, Soft Tissue -Endocarditis -UTI -Bone, Joint Infection -Implantable Device -Acute Abdominal Infection -Wound Infection -Meningitis -Blood Stream Catheter Infection -Unknown Skin Complaint Exam - Skin Rash/Itching Complaint/Exam Onset/Duration: 2 days Symptoms Are: Still present Initial Severity: Mild Current Severity: Moderate Location: arms , legs and trunk Potential Exposures: Reports: Other Aggravating: Reports: None Alleviating: Reports: None Associated Signs and Symptoms: Denies: Difficulty breathing, Fever, Chills Skin Findings: Present: Urticaria Differential Diagnoses: Contact Dermatitis Review of Systems - Review Of Systems Constitutional: Reports: No symptoms Eyes: Reports: No symptoms Ears, Nose, Mouth, Throat: Reports: No symptoms Respiratory: Reports: No symptoms Cardiac: Reports: No symptoms GI: Reports: No symptoms : Reports: No symptoms Musculoskeletal: Reports: No symptoms Skin: Reports: Rash Neurological: Reports: No symptoms Endocrine: Reports: No symptoms Hematologic/Lymphatic: Reports: No symptoms All Other Systems: Reviewed and Negative Past Medical History - Past Medical History Previously Healthy: No Endocrine: Reports: DM 2 Cardiovascular: Reports: Hypertension Respiratory: Reports: COPD, Asthma Hematological: Reports: None Gastrointestinal: Reports: None Genitourinary: Reports: None Neuro/Psych: Reports: None Musculoskeletal: Reports: Arthritis, Back Pain Cancer: Reports: None Other Pertinent Past Medical History: HEART MURMUR/NECK PROBLEMS. - Surgical History General Surgical History: Reports: None - Family History Family History: Reports: Unknown - Social History Smoking Status: Current every day smoker, Heavy tobacco smoker Hx Substance Use: No Alcohol Screening: None - Immunizations Tetanus Shot up to Date: Yes Physical Exam - Physical Exam Appearance: Well-appearing, No pain distress, Well-nourished Eyes: JACIEL ENT: Ears normal Neck: Supple Respiratory: Airway patent, Breath sounds clear, Breath sounds equal, Respirations nonlabored Cardiovascular: RRR, Pulses normal, No rub, No murmur GI/: Soft Musculoskeletal: Normal strength Skin: Warm, Dry, Normal color Neurological: Sensation intact, Motor intact, Reflexes intact, Cranial nerves intact, Alert, Oriented Psychiatric: Affect appropriate, Mood appropriate Critical Care Note - Critical Care Note Total Time (mins): 0 Course - Course Orders, Labs, Meds: Orders Category Date Time Status Dexamethasone 4 mg/ml Inj [Decadron 4 mg/ml Sdv] MEDS 10/15/17 02:28 Stat 8 mg IM ONCE STA Diphenhydramine Inj [Benadryl] MEDS 10/15/17 02:29 Stat 50 mg IM ONCE STA Medications Generic Name Dose Route Start Last Admin Trade Name Freq PRN Reason Stop Dose Admin Dexamethasone Sodium Phosphate 8 mg 10/15/17 02:28 Decadron 4 Mg/Ml Sdv IM 10/15/17 02:29 ONCE STA Diphenhydramine HCl 50 mg 10/15/17 02:29 Benadryl IM 10/15/17 02:30 ONCE STA Vital Signs: Temp Pulse Resp BP Pulse Ox 10/15/17 02:18 97.5 F L 97 H 16 172/82 H 92 L Departure - Departure Time of Disposition: 02:31 Disposition: HOME SELF-CARE Discharge Problem: Pruritic rash Instructions: Contact Dermatitis (ED) Condition: Good Pt referred to PMD for follow-up: Yes IPMP verified?: No Additional Instructions: prednisone 20mg x 2 days then 10mg x 2 days then 5mg x 2 days --lidex cream apply tid in a thin layer--monitor bs while on steroids--your diabetic regimen may have to be temporarily adjusted while taking steroids Allergies/Adverse Reactions: Allergies cephalexin monohydrate [From [employer]] Adverse Reaction (Verified 10/15/17 02:27) Rash Home Medications: Ambulatory Orders Albuterol Sulfate [Proair Hfa] 2 puff QID PRN 10/14/13 Metformin HCl 1 tab PO BID 10/14/13 Empagliflozin [Jardiance] 25 mg PO DAILY 06/11/14 Tiotropium [place] [Spiriva] 1 cap IH DAILY 06/11/14 Budesonide/Formoterol Fumarate [Symbicort 160-4.5 Mcg Inhaler] 2 puff IH BID Diltiazem HCl 60 mg PO BID 08/01/15 Losartan Potassium [Cozaar] 50 mg PO DAILY 08/01/15 Montelukast Sodium 10 mg PO DAILY 08/01/15 Clopidogrel Bisulfate [Clopidogrel] 75 mg PO DAILY 10/15/17 Disposition Discussed With: Patient, Family
[2017-10-15] MEDS: BENADRYL IM STA (02:39)
[2017-10-15] MEDS: DECADRON 4 MG/ML SDV IM STA (02:40)
== END 2017-10-15 03:10 | disposition home or self-care (01) ==
LOC: ED 02:17
DX: R21 Rash and other nonspecific skin eruption (principal); L29.9 Pruritus, unspecified
CPT/HCPCS: 96372; 99282

== ENCOUNTER 2017-12-21 12:30 | Outpatient (RCR) ==
[2017-12-21 14:25] VITALS: TEMP 98.1; BMI 25.3
[2018-01-03 11:43] VITALS: BP 118/58
== END 2018-01-04 23:59 ==
LOC: CAR.REHAB 12:30
PROVIDERS: ATTEND Internal Medicine
DX: I25.10 Atherosclerotic heart disease of native coronary artery without angina pectoris (principal); I27.81 Cor pulmonale (chronic); J44.9 Chronic obstructive pulmonary disease, unspecified
CPT/HCPCS: 93798

== ENCOUNTER 2018-01-08 07:10 | Outpatient (RCR) | payer OTHER ==
[2018-01-31 12:14] VITALS: BP 126/54
== END 2018-02-03 23:59 ==
LOC: CAR.REHAB 07:10
PROVIDERS: ATTEND Internal Medicine
DX: I25.10 Atherosclerotic heart disease of native coronary artery without angina pectoris (principal); I27.81 Cor pulmonale (chronic); J44.9 Chronic obstructive pulmonary disease, unspecified
CPT/HCPCS: 93798

== ENCOUNTER 2018-02-04 08:56 | Outpatient (RCR) | END 2018-02-12 08:07 | disposition home or self-care (01) | LOC: CAR.REHAB 08:56 | PROVIDERS: ATTEND Internal Medicine | DX: I25.10 Atherosclerotic heart disease of native coronary artery without angina pectoris (principal); J44.9 Chronic obstructive pulmonary disease, unspecified; I27.81 Cor pulmonale (chronic) ==

== ENCOUNTER 2018-08-05 17:51 | Emergency (ER) | payer OTHER ==
[2018-08-05 18:03] VITALS: BP 134/72; TEMP 98.4; BMI 22.4
== END 2018-08-05 19:31 | disposition left against medical advice (07) ==
LOC: ED 17:51
DX: R51 Headache (principal); F17.210 Nicotine dependence, cigarettes, uncomplicated
CPT/HCPCS: 99281

== ENCOUNTER 2018-08-15 05:30 | Outpatient (CLI) ==
[2018-08-15 05:46] VITALS: BMI 22.6
== END 2018-08-15 05:34 | disposition critical access hospital (66) ==
LOC: AMBL 05:30
PROVIDERS: ATTEND Internal Medicine Geriatric Medicine
DX: R51 Headache (principal); K08.89 Other specified disorders of teeth and supporting structures; J44.9 Chronic obstructive pulmonary disease, unspecified; Z99.81 Dependence on supplemental oxygen

== ENCOUNTER 2018-08-15 05:38 | Emergency (ER) ==
[2018-08-15 05:46] VITALS: BP 150/75; TEMP 98.3; BMI 22.6
[2018-08-15] MEDS ORDERED: DILAUDID 1 MG/ML SYRINGE IM STA (06:00)
[2018-08-15] MEDS ORDERED: AMOXIL PO STA (06:00)
[2018-08-15] MEDS ORDERED: TORADOL IM STA (06:00)
--- NOTE | 2018-08-15 06:05 | ED.PDOC ---
General ED Provider: Dr. STANTON SOLORZANO Chief Complaint: Tooth Problem Stated Complaint: Dental abscess with severe headache hx of DM, Has been on clidamycin for few days prescribed by PCP. Pain got worse this morning radiating to the left denominational giving him severe headaches. Time Seen by Physician: 06:04 Mode of Arrival: Ambulance Information Source: Patient, EMT Primary Care Provider: RACHEL JULIEN Nursing and Triage Documentation Reviewed and Agree: Yes Does patient meet sepsis criteria?: No System Inflammatory Response Syndrome: Not Applicable Sepsis Protocol: For patient's 13 years and over: Temp is 96.8 and below OR 101 and greater Pulse >90 BPM Resp >20/minute Acutely Altered Mental Status Are patient's symptoms suggestive of a new infection, such as: -Pneumonia -Skin, Soft Tissue -Endocarditis -UTI -Bone, Joint Infection -Implantable Device -Acute Abdominal Infection -Wound Infection -Meningitis -Blood Stream Catheter Infection -Unknown EENT Complaint Exam - Dental/Oral Complaint/Exam Mechanism of Injury: No known trauma Onset/Duration: 2 weeks Symptoms Are: Still present Timing: Constant Initial Severity: Moderate Current Severity: Severe Location: Left upper molar Character: Reports: Dull, Aching, Throbbing Aggravating: Reports: Heat, Cold, Chewing Alleviating: Reports: None Associated Signs and Symptoms: Denies: Swelling, Discharge, Fever, Foul odor, Foul taste in mouth Related History: Reports: Previous tooth problem, Third molars present. Denies : Similar episode, Valvular heart disease, TMJ disfunction Dental/Oral Surgical History: Reports: None Tooth Findings: Present: Percussion tenderness (mild decay ) Cervical Lymphadenopathy Present: No Facial Swelling Present: No Bleeding Present: No Oropharynx Findings: Absent: Clots, Active bleeding Septal Hematoma: No Foreign Body Present: No Dysphagia Present: No Drooling Present: No Asymmetrical Tonsillar Swelling Present: No Uvula Midline: No Lou-tonsillar Fluctuence: No Trismus Present: No Palatal Petechiae Present: No Scarlatinaform Rash Present: No Teeth Picture: 1 - tenderness and mild decay Differential Diagnoses: Dental Abcess, Dental Caries Review of Systems - Review Of Systems Constitutional: Reports: No symptoms Eyes: Reports: No symptoms Ears, Nose, Mouth, Throat: Reports: Ear pain, Mouth pain Respiratory: Reports: No symptoms Cardiac: Reports: No symptoms GI: Reports: No symptoms : Reports: No symptoms Musculoskeletal: Reports: No symptoms Skin: Reports: No symptoms Neurological: Reports: Anxiety, Headache Endocrine: Reports: No symptoms Hematologic/Lymphatic: Reports: No symptoms All Other Systems: Reviewed and Negative Past Medical History - Past Medical History Previously Healthy: No Endocrine: Reports: DM 2 Cardiovascular: Reports: Hypertension Respiratory: Reports: COPD, Asthma Hematological: Reports: None Gastrointestinal: Reports: None Genitourinary: Reports: None Neuro/Psych: Reports: None Musculoskeletal: Reports: Arthritis, Back Pain Cancer: Reports: None Other Pertinent Past Medical History: HEART MURMUR/NECK PROBLEMS. Sinusitis - Surgical History General Surgical History: Reports: None - Family History Family History: Reports: Unknown - Social History Smoking Status: Current every day smoker, Heavy tobacco smoker Hx Substance Use: No Alcohol Screening: None - Immunizations Tetanus Shot up to Date: Yes Physical Exam - Physical Exam Appearance: Ill-appearing Ill-appearing: Mild Pain Distress: Severe Eyes: JACIEL, EOMI, Conjunctiva clear ENT: Ears normal Neck: Supple Respiratory: Airway patent, Breath sounds equal, Breath sounds diminished, Respirations nonlabored Cardiovascular: RRR, Pulses normal, No rub, No murmur Musculoskeletal: Normal strength Skin: Warm Neurological: Alert, Oriented Psychiatric: Anxious Interpretation - Radiology Interpretation Radiology Interpretation By: Radiologist Radiology Results: Negative (except bilateral facial sinusitis stable from prior MRI) Exam Interpreted: CT Scan (head and max) Re-Evaluation - Re-Evaluation Time of Re-Evaluation: 06:28 Status: Improved Pain Level: pain is 0/10 Critical Care Note - Critical Care Note Total Time (mins): 0 Course - Course Orders, Labs, Meds: Orders Category Date Time Status Amoxicillin [Amoxil] MEDS 08/15/18 06:00 Discontinued 500 mg PO ONCE STA Hydromorphone HCl [Dilaudid 1 mg/ml Syringe] MEDS 08/15/18 06:00 Discontinued 1 mg IM ONCE STA Ketorolac Tromethamine [Toradol] MEDS 08/15/18 06:00 Discontinued 60 mg IM ONCE STA CT HEAD W/O CONTRAST Stat RADS 08/15/18 06:[address] MAXILLOFACIAL W/O CONTRAST Stat RADS 04/11/19 06:03 Ordered Medications Discontinued Medications Generic Name Dose Route Start Last Admin Trade Name Freq PRN Reason Stop Dose Admin Amoxicillin 500 mg 08/15/18 06:00 Amoxil PO 08/15/18 06:01 ONCE STA Hydromorphone HCl 1 mg 08/15/18 06:00 Dilaudid 1 Mg/Ml Syringe IM 08/15/18 06:01 ONCE STA Ketorolac Tromethamine 60 mg 08/15/18 06:00 Toradol IM 08/15/18 06:01 ONCE STA Vital Signs: Temp Pulse Resp BP Pulse Ox 08/15/18 05:42 98.3 F 83 16 150/75 H 95 Departure - Departure Time of Disposition: 07:45 Disposition: HOME SELF-CARE Discharge Problem: Toothache, Chronic sinusitis of both maxillary sinuses Instructions: Dental Abscess (ED), Toothache (ED), Sinusitis (ED) Condition: Stable Pt referred to PMD for follow-up: Yes IPMP verified?: No Additional Instructions: continue home antibiotics Take Hydrocodone as needed for severe pain do not take Tramadol while on Hydrocodone. Prescriptions: Hydrocodone Bit/Acetaminophen [[place]irie 5-325] 1 each PO Q6HR PRN #15 tablet PRN Reason: severe pain Allergies/Adverse Reactions: Allergies No Known Allergies Allergy (Unverified 08/15/18 05:46) Home Medications: Ambulatory Orders Albuterol Sulfate [Proair Hfa] 2 puff QID PRN 10/14/13 Metformin HCl 1 tab PO BID 10/14/13 Empagliflozin [Jardiance] 25 mg PO DAILY 06/11/14 Tiotropium [place] [Spiriva] 1 cap IH DAILY 06/11/14 Budesonide/Formoterol Fumarate [Symbicort 160-4.5 Mcg Inhaler] 2 puff IH BID Losartan Potassium [Cozaar] 50 mg PO DAILY 08/01/15 Montelukast Sodium 10 mg PO DAILY 08/01/15 Clopidogrel Bisulfate [Clopidogrel] 75 mg PO DAILY 10/15/17 Metoprolol Tartrate [Lopressor] 25 mg PO DAILY 08/05/18 Tramadol HCl [Ultram] 50 mg PO DAILY 08/05/18 Clindamycin HCl [Cleocin] 150 mg PO Q8HR 04/11/19 Hydrocodone Bit/Acetaminophen [[place] 5-325] 1 each PO Q6HR PRN #15 tablet Pravastatin Sodium [Pravachol] 40 mg PO DAILY 08/15/18 Disposition Discussed With: Patient
--- NOTE | 2018-08-15 06:34 | CT ---
EXAM: CT brain without contrast HISTORY: Dental abscess and headache TECHNIQUE: CT of the brain without intravenous contrast FINDINGS: There is no acute hemorrhage midline shift or mass effect. No hydrocephalus or abnormal e xtra-axial fluid collection. No significant parenchymal attenuation abnormality. The bony cranium a ppears normal. Bilateral maxillary sinus mucoperiosteal thickening and retention cysts. The mastoid air cells and middle ears are clear. Soft tissues without significant abnormality. IMPRESSION: 1. No intracranial abnormality 2. Bilateral maxillary sinus retention cysts are stable from 04/28/2010 MRI
--- NOTE | 2018-08-15 06:40 | CT ---
Exam: CT maxillofacial without contrast History: Headache and facial pain with left-sided dental abscess Technique: [address] maxillofacial with multiplanar reformations FINDINGS: Bilateral maxillary sinus partial opacification from mucosal thickening and retention cyst s. Partial opacification of the right frontal sinus and right frontal ethmoid sinuses. The orbital fat is clear. Normal zygoma and nasal bone. Nasal airway is widely patent. The maxilla and mandibl e are intact. No suspicious apical dental lucencies are seen. No soft tissue abnormalities are seen . Impression: 1. Bilateral maxillary, right anterior ethmoid and right frontal sinus disease as described. The fi ndings were also present on 04/28/2010 MRI although improved on current study.
== END 2018-08-15 06:47 | disposition home or self-care (01) ==
LOC: ED 05:38
DX: K08.89 Other specified disorders of teeth and supporting structures (principal); J32.0 Chronic maxillary sinusitis; K02.7 Dental root caries; E11.9 Type 2 diabetes mellitus without complications; I10 Essential (primary) hypertension; Z79.899 Other long term (current) drug therapy; F17.210 Nicotine dependence, cigarettes, uncomplicated
CPT/HCPCS: 96372; 99283

== ENCOUNTER 2018-08-16 00:34 | Outpatient (CLI) ==
[2018-08-16 00:47] VITALS: BMI 22.6
== END 2018-08-16 00:40 | disposition critical access hospital (66) ==
LOC: AMBL 00:34
PROVIDERS: ATTEND Family Medicine
DX: R51 Headache (principal); Z99.81 Dependence on supplemental oxygen

== ENCOUNTER 2018-08-16 00:47 | Emergency (ER) | payer OTHER ==
[2018-08-16 00:47] VITALS: BMI 22.6
[2018-08-16 00:56] VITALS: BP 145/66; TEMP 97.7
[2018-08-16] MEDS ORDERED: PHENERGAN 25 MG/ML VIAL IM STA (01:14)
[2018-08-16] MEDS ORDERED: DILAUDID 1 MG/ML SYRINGE IM STA (01:14)
[2018-08-16] MEDS ORDERED: DECADRON 4 MG/ML SDV IM STA (01:14)
--- NOTE | 2018-08-16 02:02 | CT ---
EXAM: CT head without contrast. HISTORY: Headache. PROCEDURE: Contiguous axial CT images of the head without contrast with coronal and sagittal reforma ts. FINDINGS: The ventricles and basal cisterns are normal in size and configuration. No evidence of m ass or midline shift. No intracranial hemorrhage or evidence of large vessel infarct. There are min imal chronic small vessel ischemic changes. No extra-axial fluid collection. There is minimal mucos al thickening in the paranasal sinuses. The mastoid air cells are normal in appearance. Impression: No intracranial hemorrhage or evidence of large vessel infarct. Minimal chronic small vessel ischemic changes. Paranasal sinusitis.
--- NOTE | 2018-08-16 02:18 | ED.PDOC ---
General ED Provider: Dr. RUBEN BLANDON-ER Chief Complaint: Headache Stated Complaint: carson had a headache for 2 weeks--has appt with dentist tomorrow --haque is left sided Time Seen by Physician: 00:50 Mode of Arrival: Ambulance Information Source: Patient Exam Limitations: No limitations Primary Care Provider: RACHEL JULIEN Nursing and Triage Documentation Reviewed and Agree: Yes Does patient meet sepsis criteria?: No System Inflammatory Response Syndrome: Not Applicable Sepsis Protocol: For patient's 13 years and over: Temp is 96.8 and below OR 101 and greater Pulse >90 BPM Resp >20/minute Acutely Altered Mental Status Are patient's symptoms suggestive of a new infection, such as: -Pneumonia -Skin, Soft Tissue -Endocarditis -UTI -Bone, Joint Infection -Implantable Device -Acute Abdominal Infection -Wound Infection -Meningitis -Blood Stream Catheter Infection -Unknown Neurological Complaint Exam - Headache Complaint/Exam Onset: Gradual Duration: 2 weeks Symptoms Are: Still present Timing: Constant Worst Headache Ever: No Initial Severity: Mild Current Severity: Moderate Location: Left, Frontal Character: Reports: Dull, Throbbing, Pressure Aggravating: Reports: Bright lights Associated Signs and Symptoms: Denies: Dizziness, Seizure, Nausea, Vomiting, Sinus pressure, Fever, Neck pain, Neck stiffness, Decreased LOC, Visual changes Related History: Reports: Similar episode. Denies: Recent trauma, Remote trauma Related Surgical History: Reports: None Temporal Arteritis Risk Factors: Reports: Normal Head CT Within Last 12 Months: Yes Fundoscopic Exam: Present: Normal Findings Papilledema Present: No Temporal Artery Tenderness: Present: None Sinus Tenderness: Present: None TMJ Tenderness: Present: None Glascow Coma Scale (see protocol): 15 Meningeal Signs Positive: No Pain on Passive Flexion-Positive Kernig's: No ROM Limited In: No Limitiations Focal Weakness: Present: None Focal Sensory Loss: Present: None Gait: Normal Nystagmus Present: Yes Gag Reflex Present: Yes [id number]: Normal Findings Romberg Test Positive: No Babinski Sign: Negative Right, Negative Left Heel to Toe Normal: Yes Differential Diagnoses: Migraine, Temporal Arteritis, Tension Headache, Viral Syndrome, Other Review of Systems - Review Of Systems Constitutional: Reports: No symptoms Eyes: Reports: No symptoms Ears, Nose, Mouth, Throat: Reports: Mouth pain Respiratory: Reports: No symptoms Cardiac: Reports: No symptoms GI: Reports: No symptoms : Reports: No symptoms Musculoskeletal: Reports: No symptoms Skin: Reports: No symptoms Neurological: Reports: Headache Endocrine: Reports: No symptoms Hematologic/Lymphatic: Reports: No symptoms All Other Systems: Reviewed and Negative Past Medical History - Past Medical History Previously Healthy: No Endocrine: Reports: DM 2 Cardiovascular: Reports: Hypertension Respiratory: Reports: COPD, Asthma Hematological: Reports: None Gastrointestinal: Reports: None Genitourinary: Reports: None Neuro/Psych: Reports: None Musculoskeletal: Reports: Arthritis, Back Pain Cancer: Reports: None Other Pertinent Past Medical History: HEART MURMUR/NECK PROBLEMS. Sinusitis - Surgical History General Surgical History: Reports: None - Family History Family History: Reports: Unknown - Social History Smoking Status: Current every day smoker, Heavy tobacco smoker Hx Substance Use: No Alcohol Screening: None - Immunizations Tetanus Shot up to Date: No Physical Exam - Physical Exam Appearance: Well-appearing Pain Distress: Moderate Eyes: JACIEL, EOMI, Conjunctiva clear ENT: Ears normal, Nose normal, Oropharynx normal Neck: Supple Respiratory: Airway patent Cardiovascular: RRR, Pulses normal, No rub, No murmur GI/: Soft, Nontender, No masses, Bowel sounds normal, No Organomegaly Musculoskeletal: Normal strength, ROM intact, No edema, No calf tenderness Skin: Warm, Dry, Normal color Neurological: Sensation intact, Motor intact, Reflexes intact, Cranial nerves intact, Alert, Oriented Psychiatric: Affect appropriate, Mood appropriate Interpretation - Radiology Interpretation Radiology Interpretation By: Radiologist Radiology Results: Negative Exam Interpreted: CT Scan Re-Evaluation - Re-Evaluation Time of Re-Evaluation: 02:18 Status: Improved Vital Signs Stable: Yes Pain Level: 2 Appearance: NAD Lungs: Clear Skin: Warm and Dry Neuro: Alert and Oriented X3 CV: RRR Critical Care Note - Critical Care Note Total Time (mins): 0 Course - Course Hematology/Chemistry: 08/16/18 01:20 08/16/18 01:20 Orders, Labs, Meds: Lab Review 08/16/18 08/16/18 01:20 01:20 WBC 11.72 H RBC 5.14 Hgb 15.6 Hct 48.2 MCV 93.8 MCH 30.4 MCHC 32.4 RDW Coeff of Kar 13.5 Plt Count 227 Immature Gran % (Auto) 0.9 Neut % (Auto) 65.8 Lymph % (Auto) 19.7 [place] % (Auto) 10.8 H Eos % (Auto) 2.3 Baso % (Auto) 0.5 Immature Gran # (Auto) 0.1 Neut # (Auto) 7.7 H Lymph # (Auto) 2.3 [place] # (Auto) 1.3 Eos # (Auto) 0.3 Baso # (Auto) 0.1 ESR 1 Sodium 139.3 Potassium 3.98 Chloride 98.2 Carbon Dioxide 32.9 H Anion Gap 12.18 BUN 18.9 Creatinine 0.68 Estimated GFR (MDRD) 118.00 BUN/Creatinine Ratio 27.79 Glucose 154.3 H Calcium 8.92 Total Bilirubin 0.71 AST 37.1 ALT 24.7 Alkaline Phosphatase 77.7 Total Protein 6.74 Albumin 4.69 Globulin 2.05 Albumin/Globulin Ratio 2.28 Orders Category Date Time Status CBC W/ AUTO DIFF Stat LAB 08/16/18 01:20 Completed COMPREHENSIVE METABOLIC PANEL Stat LAB 08/16/18 01:20 Completed ESR Stat LAB 08/16/18 01:20 Completed Dexamethasone 4 mg/ml Inj [Decadron 4 mg/ml Sdv] MEDS 08/16/18 01:14 Discontinued 4 mg IM ONCE STA Hydromorphone HCl [Dilaudid 1 mg/ml Syringe] MEDS 08/16/18 01:14 Discontinued 1 mg IM ONCE STA Promethazine HCl [Phenergan 25 mg/ml Vial] MEDS 08/16/18 01:14 Discontinued 25 mg IM ONCE STA CT HEAD W/O CONTRAST Stat RADS 08/16/18 01:13 Completed Medications Discontinued Medications Generic Name Dose Route Start Last Admin Trade Name Kulwantq PRN Reason Stop Dose Admin Dexamethasone Sodium Phosphate 4 mg 08/16/18 01:14 08/16/18 01:26 Decadron 4 Mg/Ml Sdv IM 08/16/18 01:15 4 mg ONCE STA Administration Hydromorphone HCl 1 mg 08/16/18 01:14 08/16/18 01:27 Dilaudid 1 Mg/Ml Syringe IM 08/16/18 01:15 1 mg ONCE STA Administration Promethazine HCl 25 mg 08/16/18 01:14 08/16/18 01:27 Phenergan 25 Mg/Ml Vial IM 08/16/18 01:15 25 mg ONCE STA Administration Vital Signs: Temp Pulse Resp BP Pulse Ox 08/16/18 00:47 97.7 F 67 20 145/66 H 95 Departure - Departure Time of Disposition: 02:18 Disposition: HOME SELF-CARE Discharge Problem: Headache Instructions: Acute Headache (ED) Condition: Good Pt referred to PMD for follow-up: Yes IPMP verified?: No Additional Instructions: keep appt with dentist today and f/u with pcp Allergies/Adverse Reactions: Allergies No Known Allergies Allergy (Verified 08/16/18 00:56) Home Medications: Ambulatory Orders Albuterol Sulfate [Proair Hfa] 2 puff INH QID PRN 10/14/13 Empagliflozin [Jardiance] 25 mg PO DAILY 06/11/14 Tiotropium [place] [Spiriva] 1 cap IH DAILY 06/11/14 Budesonide/Formoterol Fumarate [Symbicort 160-4.5 Mcg Inhaler] 2 puff IH BID Losartan Potassium [Cozaar] 50 mg PO DAILY 08/01/15 Montelukast Sodium 10 mg PO DAILY PRN 08/01/15 Clopidogrel Bisulfate [Clopidogrel] 75 mg PO DAILY 10/15/17 Metoprolol Tartrate [Lopressor] 25 mg PO DAILY 08/05/18 Tramadol HCl [Ultram] 50 mg PO DAILY 08/05/18 Clindamycin HCl [Cleocin] 150 mg PO Q8HR 08/15/18 Hydrocodone Bit/Acetaminophen [[place] 5-325] 1 each PO Q6HR PRN #15 tablet Pravastatin Sodium [Pravachol] 40 mg PO DAILY 08/15/18 Disposition Discussed With: Patient, Family
== END 2018-08-16 03:11 | disposition home or self-care (01) ==
LOC: ED 00:47
DX: R51 Headache (principal); F17.210 Nicotine dependence, cigarettes, uncomplicated
CPT/HCPCS: 36415; 80053; 85025; 85651; 96372; 99283

== ENCOUNTER 2018-08-18 02:46 | Emergency (ER) | payer OTHER ==
[2018-08-18 02:46] VITALS: BMI 22.6
[2018-08-18 02:51] VITALS: BP 131/70; TEMP 98.6
[2018-08-18] MEDS ORDERED: DILAUDID 1 MG/ML SYRINGE IM STA (02:51)
[2018-08-18] MEDS ORDERED: TORADOL IM STA (02:51)
[2018-08-18] MEDS ORDERED: PHENERGAN 25 MG/ML VIAL IM STA (02:52)
--- NOTE | 2018-08-18 02:54 | ED.PDOC ---
General ED Provider: Dr. RUBEN BLANDON-ER Chief Complaint: Tooth Problem Stated Complaint: my tooth really hurts---the dentist is sending me to a oral surgeon on sunday Time Seen by Physician: 02:50 Mode of Arrival: Wheelchair Information Source: Patient, Family Exam Limitations: No limitations Primary Care Provider: RACHEL JULIEN Nursing and Triage Documentation Reviewed and Agree: Yes Does patient meet sepsis criteria?: No System Inflammatory Response Syndrome: Not Applicable Sepsis Protocol: For patient's 13 years and over: Temp is 96.8 and below OR 101 and greater Pulse >90 BPM Resp >20/minute Acutely Altered Mental Status Are patient's symptoms suggestive of a new infection, such as: -Pneumonia -Skin, Soft Tissue -Endocarditis -UTI -Bone, Joint Infection -Implantable Device -Acute Abdominal Infection -Wound Infection -Meningitis -Blood Stream Catheter Infection -Unknown EENT Complaint Exam - Dental/Oral Complaint/Exam Mechanism of Injury: No known trauma Onset/Duration: several days Symptoms Are: Still present Initial Severity: Mild Current Severity: Moderate Location: left upper molar Character: Reports: Dull, Aching, Throbbing Aggravating: Reports: Heat, Cold, Chewing Alleviating: Reports: None Associated Signs and Symptoms: Denies: Swelling, Discharge, Fever, Foul odor, Foul taste in mouth Related History: Reports: Previous tooth problem Tooth Findings: Present: Percussion tenderness, Gross caries Cervical Lymphadenopathy Present: No Facial Swelling Present: No Bleeding Present: No Oropharynx Findings: Absent: Clots, Active bleeding Septal Hematoma: No Foreign Body Present: No Dysphagia Present: No Uvula Midline: Yes Lou-tonsillar Fluctuence: No Trismus Present: No Palatal Petechiae Present: No Scarlatinaform Rash Present: No Differential Diagnoses: Dental Abcess, Dental Caries Review of Systems - Review Of Systems Constitutional: Reports: No symptoms Eyes: Reports: No symptoms Ears, Nose, Mouth, Throat: Reports: Mouth pain Respiratory: Reports: No symptoms Cardiac: Reports: No symptoms GI: Reports: No symptoms : Reports: No symptoms Musculoskeletal: Reports: No symptoms Skin: Reports: No symptoms Neurological: Reports: No symptoms Endocrine: Reports: No symptoms Hematologic/Lymphatic: Reports: No symptoms All Other Systems: Reviewed and Negative Past Medical History - Past Medical History Previously Healthy: No Endocrine: Reports: DM 2 Cardiovascular: Reports: Hypertension Respiratory: Reports: COPD, Asthma Hematological: Reports: None Gastrointestinal: Reports: None Genitourinary: Reports: None Neuro/Psych: Reports: None Musculoskeletal: Reports: Arthritis, Back Pain Cancer: Reports: None Other Pertinent Past Medical History: HEART MURMUR/NECK PROBLEMS. Sinusitis - Surgical History General Surgical History: Reports: None - Family History Family History: Reports: Unknown - Social History Smoking Status: Current every day smoker, Heavy tobacco smoker Hx Substance Use: No Alcohol Screening: None - Immunizations Tetanus Shot up to Date: Yes Physical Exam - Physical Exam Appearance: Well-appearing, No pain distress, Well-nourished Eyes: JACIEL, EOMI, Conjunctiva clear ENT: Ears normal, Nose normal, Oropharynx normal Neck: Supple Respiratory: Airway patent, Breath sounds clear, Breath sounds equal, Respirations nonlabored Cardiovascular: RRR, Pulses normal, No rub, No murmur GI/: Soft, Nontender, No masses, Bowel sounds normal, No Organomegaly Musculoskeletal: Normal strength, ROM intact, No edema, No calf tenderness Skin: Warm, Dry, Normal color Neurological: Sensation intact, Motor intact, Reflexes intact, Cranial nerves intact, Alert, Oriented Psychiatric: Affect appropriate Critical Care Note - Critical Care Note Total Time (mins): 0 Course - Course Orders, Labs, Meds: Orders Category Date Time Status Hydromorphone HCl [Dilaudid 1 mg/ml Syringe] MEDS 08/18/18 02:51 Stat 1 mg IM ONCE STA Ketorolac Tromethamine [Toradol] MEDS 08/18/18 02:51 Stat 60 mg IM ONCE STA Promethazine HCl [Phenergan 25 mg/ml Vial] MEDS 08/18/18 02:52 Stat 25 mg IM ONCE STA Vital Signs: Temp Pulse Resp BP Pulse Ox 08/18/18 02:46 98.6 F 99 H 18 131/70 93 L Departure - Departure Time of Disposition: 02:55 Disposition: HOME SELF-CARE Discharge Problem: Toothache Instructions: Toothache (ED) Condition: Good Pt referred to PMD for follow-up: Yes IPMP verified?: No Additional Instructions: keep f/u with oral surgeon Allergies/Adverse Reactions: Allergies No Known Allergies Allergy (Verified 08/18/18 02:49) Home Medications: Ambulatory Orders Albuterol Sulfate [Proair Hfa] 2 puff INH QID PRN 10/14/13 Empagliflozin [Jardiance] 25 mg PO DAILY 06/11/14 Tiotropium [place] [Spiriva] 1 cap IH DAILY 06/11/14 Budesonide/Formoterol Fumarate [Symbicort 160-4.5 Mcg Inhaler] 2 puff IH BID Losartan Potassium [Cozaar] 50 mg PO DAILY 08/01/15 Montelukast Sodium 10 mg PO DAILY PRN 08/01/15 Clopidogrel Bisulfate [Clopidogrel] 75 mg PO DAILY 10/15/17 Metoprolol Tartrate [Lopressor] 25 mg PO DAILY 08/05/18 Tramadol HCl [Ultram] 50 mg PO DAILY 08/05/18 Clindamycin HCl [Cleocin] 150 mg PO Q8HR 08/15/18 Hydrocodone Bit/Acetaminophen [[place] 5-325] 1 each PO Q6HR PRN #15 tablet Pravastatin Sodium [Pravachol] 40 mg PO DAILY 08/15/18 Disposition Discussed With: Patient, Family
== END 2018-08-18 03:27 | disposition home or self-care (01) ==
LOC: ED 02:46
DX: K08.89 Other specified disorders of teeth and supporting structures (principal); K13.79 Other lesions of oral mucosa; Z72.0 Tobacco use
CPT/HCPCS: 96372; 99282

== ENCOUNTER 2018-08-21 10:07 | Emergency (ER) | payer OTHER ==
[2018-08-21 10:07] VITALS: BMI 22.6
[2018-08-21 10:13] VITALS: BP 106/64; TEMP 98.5
--- NOTE | 2018-08-21 10:22 | ED.PDOC ---
General ED Provider: Dr. RUBEN RAYMUNDO Chief Complaint: Headache Stated Complaint: Headache/ Post tooth extraction Pain. Has been bothered with severe headache for past week and was associated with tooth ache Time Seen by Physician: 10:25 Mode of Arrival: Walk-In Information Source: Patient Exam Limitations: No limitations Primary Care Provider: RACHEL JULIEN Seen Within Last 72 Hours for Same Complaint By: ED Nursing and Triage Documentation Reviewed and Agree: Yes Does patient meet sepsis criteria?: No System Inflammatory Response Syndrome: Not Applicable Sepsis Protocol: For patient's 13 years and over: Temp is 96.8 and below OR 101 and greater Pulse >90 BPM Resp >20/minute Acutely Altered Mental Status Are patient's symptoms suggestive of a new infection, such as: -Pneumonia -Skin, Soft Tissue -Endocarditis -UTI -Bone, Joint Infection -Implantable Device -Acute Abdominal Infection -Wound Infection -Meningitis -Blood Stream Catheter Infection -Unknown Neurological Complaint Exam - Headache Complaint/Exam Onset: Gradual Symptoms Are: Still present Timing: Intermittent Episodes Lasting: Days Worst Headache Ever: No Initial Severity: Severe Current Severity: Moderate Location: Left, Temporal Character: Reports: Sharp, Dull, Pressure Aggravating: Reports: Position change, Bright lights Alleviating: Reports: Rest, Position change Associated Signs and Symptoms: Reports: Dizziness, Sinus pressure Related History: Reports: Similar episode Related Surgical History: Reports: None SAH Risk Factors: Reports: None Meningitis Risk Factors: Reports: None SDH Risk Factors: Reports: None Temporal Arteritis Risk Factors: Reports: , Over 60 years old Normal Head CT Within Last 12 Months: Yes Fundoscopic Exam: Present: Normal Findings Papilledema Present: No Temporal Artery Tenderness: Present: Left Sinus Tenderness: Present: Maxillary TMJ Tenderness: Present: None Meningeal Signs Positive: No Pain on Passive Flexion-Positive Kernig's: No ROM Limited In: No Limitiations Focal Weakness: Present: None Focal Sensory Loss: Present: None Gait: Normal Nystagmus Present: No Gag Reflex Present: No [id number]: Normal Findings Romberg Test Positive: No Babinski Sign: Negative Right, Negative Left Heel to Toe Normal: Yes Differential Diagnoses: Migraine, Sinus Headache, Temporal Arteritis, Tension Headache Review of Systems - Review Of Systems Constitutional: Reports: Weakness Eyes: Reports: Photophobia Ears, Nose, Mouth, Throat: Reports: Mouth pain Respiratory: Reports: Short of air Cardiac: Reports: No symptoms GI: Reports: No symptoms : Reports: No symptoms Musculoskeletal: Reports: No symptoms Skin: Reports: No symptoms Neurological: Reports: Headache Endocrine: Reports: No symptoms Hematologic/Lymphatic: Reports: No symptoms All Other Systems: Reviewed and Negative Past Medical History - Past Medical History Previously Healthy: No Endocrine: Reports: DM 2 Cardiovascular: Reports: Hypertension Respiratory: Reports: COPD, Asthma Hematological: Reports: None Gastrointestinal: Reports: None Genitourinary: Reports: None Neuro/Psych: Reports: None Musculoskeletal: Reports: Arthritis, Back Pain Cancer: Reports: None Other Pertinent Past Medical History: HEART MURMUR/NECK PROBLEMS. Sinusitis - Surgical History General Surgical History: Reports: None - Family History Family History: Reports: Unknown - Social History Smoking Status: Current every day smoker, Heavy tobacco smoker Hx Substance Use: No Alcohol Screening: None Physical Exam - Physical Exam Appearance: Ill-appearing Ill-appearing: Mild Pain Distress: Mild Eyes: JACIEL, EOMI, Conjunctiva clear ENT: Ears normal, Nose normal, Oropharynx normal Neck: Supple (Lt Occipital cervical and Lt Temporal Tenderness) Respiratory: Airway patent, Breath sounds clear, Breath sounds equal, Respirations nonlabored Cardiovascular: RRR, Pulses normal, No rub, No murmur GI/: Soft, Nontender, No masses, Bowel sounds normal, No Organomegaly Musculoskeletal: Normal strength, ROM intact, No edema, No calf tenderness Skin: Warm, Dry, Normal color Neurological: Sensation intact, Motor intact, Reflexes intact, Cranial nerves intact, Alert, Oriented Psychiatric: Affect appropriate, Mood appropriate Physician Notification - Case Discussed Physician Notified: Dr Julien's office Time of Notification: 11:45 Critical Care Note - Critical Care Note Total Time (mins): 0 Course - Course Hematology/Chemistry: 08/21/18 10:43 08/21/18 10:43 Orders, Labs, Meds: Lab Review 08/21/18 08/21/18 10:43 10:43 WBC 10.16 RBC 4.31 L Hgb 13.1 L Hct 40.2 L MCV 93.3 MCH 30.4 MCHC 32.6 RDW Coeff of Kar 13.5 Plt Count 235 Immature Gran % (Auto) 0.4 Neut % (Auto) 71.9 Lymph % (Auto) 16.6 [place] % (Auto) 8.7 Eos % (Auto) 2.1 Baso % (Auto) 0.3 Immature Gran # (Auto) 0.0 Neut # (Auto) 7.3 H Lymph # (Auto) 1.7 [place] # (Auto) 0.9 Eos # (Auto) 0.2 Baso # (Auto) 0.0 ESR 6 Sodium 136.1 Potassium 4.35 Chloride 97.1 L Carbon Dioxide 34.2 H Anion Gap 9.15 BUN 13.6 Creatinine 0.55 L Estimated GFR (MDRD) 150.00 BUN/Creatinine Ratio 24.72 Glucose 197.4 H Calcium 8.80 Total Bilirubin 0.50 AST 30.0 ALT 23.2 Alkaline Phosphatase 63.5 Total Protein 6.22 L Albumin 4.20 Globulin 2.02 Albumin/Globulin Ratio 2.07 Orders Category Date Time Status CBC W/ AUTO DIFF Stat LAB 08/21/18 10:43 Completed CMP [COMPREHENSIVE METABOLIC PANEL] Stat LAB 08/21/18 10:43 Completed ESR Stat LAB 08/21/18 10:43 Completed Ceftriaxone Sodium [Rocephin] MEDS 08/21/18 11:55 Discontinued 1 gm IM ONCE STA Hydrocortisone Sod Succ/Pf [Solu-Cortef 250 mg] MEDS 08/21/18 11:54 Discontinued 125 mg IM ONCE STA Lidocaine HCl/Pf [Lidocaine HCl 1% Sdv] MEDS 08/21/18 11:55 Discontinued 2.1 ml IM ONCE STA CT MAXILLOFACIAL W/O CONTRAST Stat RADS 08/21/18 11:58 Completed Medications Discontinued Medications Generic Name Dose Route Start Last Admin Trade Name Freq PRN Reason Stop Dose Admin Ceftriaxone Sodium 1 gm 08/21/18 11:55 08/21/18 12:08 Rocephin IM 08/21/18 11:56 1 gm ONCE STA Administration Hydrocortisone Sodium Succinate 125 mg 08/21/18 11:54 08/21/18 12:09 Solu-Cortef 250 Mg IM 08/21/18 11:55 125 mg ONCE STA Administration Lidocaine HCl 2.1 ml 08/21/18 11:55 08/21/18 12:09 Lidocaine Hcl 1% Sdv IM 08/21/18 11:56 2.1 ml ONCE STA Administration Vital Signs: Temp Pulse Resp BP Pulse Ox 08/21/18 10:07 98.5 F 109 H 20 106/64 93 L Departure - Departure Time of Disposition: 12:15 Disposition: HOME SELF-CARE Discharge Problem: Sinusitis chronic, ethmoidal, Sinusitis, Cephalgia Condition: Good Pt referred to PMD for follow-up: Yes IPMP verified?: No Additional Instructions: Take antibiotics as directed Remain on O2 Tylenol 325 mg 2 tabs every 4 hrs for pain. May take Norflex twice daily of muscle spasm/Headache as needed Seek consultation with ENT Specialist See Dr Julien next week Prescriptions: Amoxicillin/Potassium Clav [Augmentin 875-125 mg Tab] 1 tab PO Q12HR #20 tablet Allergies/Adverse Reactions: Allergies No Known Allergies Allergy (Verified 08/21/18 10:12) Home Medications: Ambulatory Orders Albuterol Sulfate [Proair Hfa] 2 puff INH QID PRN 10/14/13 Empagliflozin [Jardiance] 25 mg PO DAILY 06/11/14 Tiotropium [place] [Spiriva] 1 cap IH DAILY 06/11/14 Budesonide/Formoterol Fumarate [Symbicort 160-4.5 Mcg Inhaler] 2 puff IH BID Losartan Potassium [Cozaar] 50 mg PO DAILY 08/01/15 Montelukast Sodium 10 mg PO DAILY PRN 08/01/15 Clopidogrel Bisulfate [Clopidogrel] 75 mg PO DAILY 10/15/17 Metoprolol Tartrate [Lopressor] 25 mg PO DAILY 08/05/18 Tramadol HCl [Ultram] 50 mg PO DAILY 08/05/18 Clindamycin HCl [Cleocin] 150 mg PO Q8HR 08/15/18 Hydrocodone Bit/Acetaminophen [[place] 5-325] 1 each PO Q6HR PRN #15 tablet Pravastatin Sodium [Pravachol] 40 mg PO DAILY 08/15/18 Amoxicillin/Potassium Clav [Augmentin 875-125 mg Tab] 1 tab PO Q12HR #20 tablet 08/21/18 Penicillin V Potassium [Penicillin Vk Tab] 500 mg PO Q6HR 08/21/18 Additional Information: Spoke with Dr Wilkerson Office (Niesha) reviewed pts complaints and findings. Reviewed treatment and follow up instructions
[2018-08-21] MEDS ORDERED: SOLU-CORTEF 250 MG IM STA (11:54)
[2018-08-21] MEDS ORDERED: ROCEPHIN IM STA (11:55)
[2018-08-21] MEDS ORDERED: LIDOCAINE HCL 1% SDV IM STA (11:55)
--- NOTE | 2018-08-21 12:57 | CT ---
EXAM: CT FACIAL BONES HISTORY: Upper left jaw pain. TECHNIQUE: CT facial bones without contrast. 3-mm axial sections. Coronal and sagital reformations . FINDINGS: No fracture is identified. Temporal mandibular joints appear normal without displacement or arthropa thy. Mastoid processes are aerated. There are multiple foci of mucosal thickening within the parana garcia sinuses, especially in the floor of the maxillary cells where there are either moderate sized (2 cm) mucous retention cysts versus polyps. No sinus fluid is seen. The nasal septum is deviated towa rd the left at its midportion. The orbits are intact. Intraorbital fat is preserved. Salivary glan ds are grossly unremarkable. IMPRESSION: 1. No etiology for the patient's symptoms was found. The mandible and temporomandibular joints appe ar normal. 2. Chronic paranasal sinus disease. Consider follow up with ENT.
== END 2018-08-21 13:38 | disposition home or self-care (01) ==
LOC: ED 10:07
DX: J32.2 Chronic ethmoidal sinusitis (principal); R51 Headache; K08.409 Partial loss of teeth, unspecified cause, unspecified class; Z98.818 Other dental procedure status; E11.9 Type 2 diabetes mellitus without complications; I10 Essential (primary) hypertension; F17.210 Nicotine dependence, cigarettes, uncomplicated; Z79.899 Other long term (current) drug therapy
CPT/HCPCS: 36415; 80053; 85025; 85651; 96372; 99283

== ENCOUNTER 2018-08-23 10:54 | Inpatient (IN) | payer OTHER ==
[2018-08-23 11:31] VITALS: BMI 22.4
[2018-08-23] MEDS ORDERED: NITROSTAT SL PRN (11:47)
[2018-08-23] MEDS ORDERED: ATROPINE SULFATE PFS IVP PRN (11:47)
[2018-08-23] MEDS ORDERED: TYLENOL PO PRN (11:47)
[2018-08-23] MEDS ORDERED: DECADRON 4 MG/ML SDV IM STA (11:47)
[2018-08-23] MEDS ORDERED: VISTARIL INJ IM PRN (11:47)
--- NOTE | 2018-08-23 13:32 | DI ---
EXAM: Chest one view HISTORY: Cough, productive COMPARISON: 09/02/2015 TECHNIQUE: Single view of the chest was performed FINDINGS: 1.7 cm nodule left upper lobe. Emphysematous change. No airspace consolidation. No pleur al effusion. No pneumothorax. Cervical spinal fusion hardware. IMPRESSION: 1. Unexpected findin.7 cm nodule left upper lobe. CT chest recommended for further evaluation. 2. No acute cardiopulmonary process. 3. Emphysema.
[2018-08-23] MEDS: TORADOL IVP SCH ×2 (13:42→21:21)
[2018-08-23] MEDS ORDERED: PROAIR HFA IH PRN (15:11)
[2018-08-23] MEDS ORDERED: SINGULAIR PO PRN (15:11)
[2018-08-23] MEDS: ROCEPHIN 1 GM in SODIUM CHLORIDE 50 ML IV SCH (16:04)
[2018-08-23] MEDS ORDERED: ALBUTEROL 0.083% NEB NEB PRN (16:09)
[2018-08-23] MEDS: HUMULIN R SUBCUT PRN ×2 (17:25→21:26)
--- NOTE | 2018-08-23 18:32 | MRI ---
EXAM: Brain MRI with and without contrast. HISTORY: Migraines. COMPARISON: Head CT 08/15/2018 and brain MRI 04/28/2010. TECHNIQUE: Multiplanar, multisequence MR images were acquired of the brain before and after administ ration of intravenous contrast. FINDINGS: The midline structures are central and the craniocervical junction is unremarkable. The v entricles, sulci and cisterns are prominent compatible with age related involutional changes which is greater centrally. There are no abnormal extra-axial fluid collections. The brain parenchyma has no diffusion restriction to suggest acute hypoperfusion or infarction. Ther e is periventricular FLAIR hyperintensity with more focal FLAIR hyperintensity along the right body o f the lateral ventricle and in the bilateral parietal periventricular white matter. Small T2 / FLAIR hyperintensities are scattered in the supratentorial white matter and in the caro consistent with mi ld leukomalacia. There is no abnormal dark gradient echo signal. After administration of gadolinium , no enhancing lesions are identified. The corpus callosum is normal. The pituitary gland is normal in size with a slightly concave anterior superior border. The infundibulum is midline. There are no intraorbital masses. Minor mucosal thickening is present in the frontal sinus with grea ter mild polypoid mucosal thickening more inferiorly. There is mucosal thickening in the ethmoid air cells bilaterally which is greatest in the anterior ethmoid air cells. Mild leftward nasal septal d eviation is present. Small and moderate mucous retention cysts are present in the right maxillary si nus and there is a small polyp or mucous retention cyst along the medial wall of the right maxillary sinus. A moderate mucous retention cyst is also present in the left maxillary sinus. Middle ears an d mastoids are unremarkable. There is no abnormal contrast enhancement in the internal auditory sheyla ls or labyrinthine structures. There is intermediate to mildly hyperintense T1, T2 and FLAIR signal in the right internal carotid ar ruth from the vertical petrous segment to the distal supraclinoid segment. Proximally there is minor central dark T2 signal that may represent minimal residual flow. However, the appearance is most co nsistent with chronic occlusion of the right internal carotid artery from the skull base to just prox imal to the bifurcation. There is a large right posterior communicating artery and normal visualizat ion of the flow voids in the right anterior and middle cerebral arteries consistent with collateraliz ation from the posterior to the anterior circulation through a large right posterior communicating ar ruth. There is a normal flow void in the left internal carotid artery from the skull base to the int racranial bifurcation and normal flow voids are present in the left anterior and middle cerebral bebeto katie and in the vertebrobasilar system. Dural venous sinuses are patent. IMPRESSION: 1. No intracranial mass, hemorrhage or acute cerebral infarct. 2. Unexpected result. 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 3. Age related involutional changes and mild chronic microvascular ischemic disease.
[2018-08-23] MEDS: DUONEB NEB SCH (19:40)
[2018-08-23] MEDS: LOPRESSOR PO SCH (21:13)
[2018-08-23] MEDS: SYMBICORT 160-4.5 MCG INHALER IH SCH (21:22)
[2018-08-23] MEDS: SPIRIVA IH SCH (21:24)
[2018-08-24] MEDS: DUONEB NEB SCH ×4 (05:05→19:50)
[2018-08-24] MEDS: TORADOL IVP SCH ×3 (05:21→21:03)
[2018-08-24] MEDS: HUMULIN R SUBCUT PRN ×4 (05:50→20:35)
[2018-08-24] MEDS: ASPIRIN EC PO SCH (08:50)
[2018-08-24] MEDS: LOPRESSOR PO SCH ×2 (08:50→20:32)
[2018-08-24] MEDS: PLAVIX PO SCH (08:50)
[2018-08-24] MEDS: PRAVACHOL PO SCH (08:51)
[2018-08-24] MEDS: JARDIANCE PO SCH (08:51)
[2018-08-24] MEDS: COZAAR PO SCH (08:52)
[2018-08-24] MEDS: ROCEPHIN 1 GM in SODIUM CHLORIDE 50 ML IV SCH (08:52)
[2018-08-24] MEDS: SYMBICORT 160-4.5 MCG INHALER IH SCH ×2 (08:54→20:30)
[2018-08-24] MEDS ORDERED: NON-FORMULARY MEDICATION (Empagliflozin [Jardiance] 25 MG) PO SCH (09:00)
[2018-08-24] MEDS ORDERED: NON-FORMULARY MEDICATION (Losartan Potassium 50 MG) PO SCH (09:00)
[2018-08-24] MEDS ORDERED: DECADRON 4 MG/ML SDV IVP STA (12:17)
[2018-08-24] MEDS ORDERED: DECADRON 4 MG/ML SDV ONE (12:51)
[2018-08-24] MEDS ORDERED: DECADRON 4 MG/ML SDV IM STA (14:47)
--- NOTE | 2018-08-24 15:49 | CT ---
EXAM: CT Chest with and without contrast. HISTORY: Cough. Sputum production. COMPARISON: Radiograph [address] 10/15/2017, 02/15/2014. TECHNIQUE: Multiple axial images of the chest were obtained prior to and following intravenous admin istration of iodinated contrast, low osmolar. Note that contrast information is not provided. Image s were reformatted in the sagittal and coronal planes. FINDINGS: Nonenlarged mediastinal and hilar lymph nodes are present. Heart size is normal. No parag cardial effusion identified. Mild atherosclerotic calcifications noted. Spiculated nodule in the left upper lobe measures approximately 2 x 1.3 cm on postcontrast axial imag es 26 and 27 which is new. A 0.4 cm right lower lobe nodule on axial image 63 is also new. A 0.4 cm right lower lobe nodule on axial image 41 is also new. A 0.5 cm left lower lobe nodule on axial konstantin ge 36 is new. More linear left upper lobe nodule on axial image 33 is identified with similar appear ing right upper lobe nodule on axial image 36. No pleural effusion or pneumothorax detected. Modera te to severe emphysematous changes seen. Calcified granulomatous changes present. Limited images of the upper abdomen demonstrate bilateral renal cysts. No osteolytic or osteoblastic lesions seen. There has been previous cervical spine surgery.. IMPRESSION: 1. New spiculated left upper lobe nodule measuring approximately 2 x 1.4 cm, highly suspicious for b ronchogenic carcinoma. Percutaneous sampling is recommended. 2. New bilateral micronodules which require attention on follow-up. 3. Moderate to severe emphysema.
[2018-08-24] MEDS: SPIRIVA IH SCH (20:30)
[2018-08-25] MEDS: TORADOL IVP SCH ×3 (04:36→20:56)
[2018-08-25] MEDS: DUONEB NEB SCH ×4 (05:15→21:15)
[2018-08-25] MEDS: LOPRESSOR PO SCH ×2 (09:22→21:02)
[2018-08-25] MEDS: ASPIRIN EC PO SCH (09:22)
[2018-08-25] MEDS: COZAAR PO SCH (09:23)
[2018-08-25] MEDS: PLAVIX PO SCH (09:23)
[2018-08-25] MEDS: PRAVACHOL PO SCH (09:24)
[2018-08-25] MEDS: JARDIANCE PO SCH (09:24)
[2018-08-25] MEDS: SYMBICORT 160-4.5 MCG INHALER IH SCH ×2 (09:24→21:00)
[2018-08-25] MEDS: ROCEPHIN 1 GM in SODIUM CHLORIDE 50 ML IV SCH (09:25)
[2018-08-25] MEDS ORDERED: DECADRON 4 MG/ML SDV IVP STA (11:58)
[2018-08-25] MEDS: ULTRAM PO PRN ×2 (12:44→18:36)
[2018-08-25] MEDS ORDERED: DILAUDID 1 MG/ML SYRINGE IVP PRN (13:10)
[2018-08-25] MEDS: HUMULIN R SUBCUT PRN ×2 (17:08→21:19)
[2018-08-25] MEDS ORDERED: MILK OF MAGNESIA PO STA (20:52)
[2018-08-25] MEDS: SPIRIVA IH SCH (21:00)
[2018-08-25] MEDS ORDERED: XANAX PO SCH (21:00)
[2018-08-26] MEDS: ULTRAM PO PRN (03:23)
[2018-08-26] MEDS: DUONEB NEB SCH ×2 (04:45→10:11)
[2018-08-26 05:03] VITALS: BP 121/60; TEMP 97.4
[2018-08-26] MEDS: TORADOL IVP SCH (05:58)
[2018-08-26] MEDS: HUMULIN R SUBCUT PRN ×2 (06:03→11:43)
[2018-08-26] MEDS: ROCEPHIN 1 GM in SODIUM CHLORIDE 50 ML IV SCH (09:46)
[2018-08-26] MEDS: SYMBICORT 160-4.5 MCG INHALER IH SCH (09:49)
[2018-08-26] MEDS: ASPIRIN EC PO SCH (09:50)
[2018-08-26] MEDS: LOPRESSOR PO SCH (09:50)
[2018-08-26] MEDS: PLAVIX PO SCH (09:51)
[2018-08-26] MEDS: PRAVACHOL PO SCH (09:51)
[2018-08-26] MEDS: JARDIANCE PO SCH (09:52)
[2018-08-26] MEDS: COZAAR PO SCH (09:52)
--- NOTE | 2018-08-26 09:55 | PCM.PROG ---
Attending Provider: ATTENDING PROVIDER: Dr. RACHEL ROSS This patient is seen with Niesha Lee, Nurse Practitioner. DATE OF SERVICE: 08/26/18 SUBJECTIVE: This 63 year old WHITE/ M was hospitalized 08/23/18. The patient is resting comfortably. The patient did have headache last night. Reviewed the CT with the patient and will refer him back to Dr. Wayne. He has been eating well. We will anticipate discharge home today. REVIEW OF SYSTEMS: CONSTITUTIONAL: No night sweats. No fatigue, malaise, lethargy. No fever or chills. HEENT: Eyes: No visual changes. No eye pain. No eye discharge. ENT: No runny nose. No epistaxis. No sinus pain. No odynophagia. No congestion. RESPIRATORY: No cough, no congestion. No hemoptysis. Shortness of breath as usual. CARDIOVASCULAR: No angina symptoms. No CHF symptoms. No atypical chest pain for CAD. No palpitations. No orthopnea.. GASTROINTESTINAL: No abdominal pain. No nausea or vomiting. No diarrhea or constipation. No hematemesis. No hematochezia. GENITOURINARY: No urgency. No frequency. No dysuria. No hematuria. No obstructive symptoms. No discharge. No pain. No significant abnormal bleeding. MUSCULOSKELETAL: No musculoskeletal pain; no joint swelling. NEUROLOGICAL: Awake, alert, oriented to time, place and person. Tension headache. No neck pain. No syncope. No seizures. No dizziness. PSYCHIATRIC: Not anxious. No depression. No suicidal thoughts. No homicidal thoughts. SKIN: No rash. No lesions. No wounds. ENDOCRINE: No unexplained weight loss. No weight gain. HEMATOLOGIC/LYMPHATIC: No anemia. No purpura. No petechiae. No prolonged or excessive bleeding. No palpable lymph nodes. PHYSICAL EXAMINATION: GENERAL: The patient is awake, alert and oriented, lying in bed in no distress. VITAL SIGNS: Temperature 97.4 F, Pulse 80, Respiratory Rate 18, BP 121/60, Pulse Ox 94% HEENT: Head normocephalic, atraumatic. Eyes: Extraocular muscles are intact. Pupils are equal, round and reactive to light and accommodation. Ears: No lesions. Nose appeared normal. Throat: No exudate or erythema. NECK: Supple. No JVD, no carotid bruit. No lymphadenopathy or thyromegaly. LUNGS:Diminished breath sounds. Clear to auscultation. Percussion note normal. Chest symmetrical. HEART: S1, S2, no S3. No murmurs. No cyanosis or clubbing. No ascites. Pulses: Dorsalis pedis and posterior tibial pulses +1 to +2 both sides. ABDOMEN: Soft. Non-tender. Bowel sounds active. No CVA tenderness. No mass felt. EXTREMITIES: No edema. Full range of motion of all extremities, equal. NEUROLOGIC: No focal deficit. Cranial nerves II through XII are grossly intact. No headache, no double vision or headache. SKIN: Not dry. Intact. Turgor-normal. LYMPHATIC: No palpable lymph nodes/no lymphedema. MUSCULOSKELETAL: Normal joints with no swelling. Muscle tone is normal. LAB REVIEW: 08/26/18 05:25 08/26/18 05:25 08/26/18 05:25: Sodium 135.8, Potassium 4.23, Chloride 97.5 L, Carbon Dioxide 33.5 H, Anion Gap 9.03, BUN 24.0 H, Creatinine 0.52 L, Estimated GFR (MDRD) 161.00, BUN/Creatinine Ratio 46.15, Glucose 148.3 H, Calcium 8.28 L, Total Bilirubin 0.37, AST 29.1, ALT 25.4, Alkaline Phosphatase 56.8, Total Protein 5.80 L, Albumin 3.92, Globulin 1.88, Albumin/Globulin Ratio 2.08 08/26/18 05:25: WBC 10.51 H, RBC 3.59 L, Hgb 10.9 L, Hct 33.7 L, MCV 93.9, MCH 30.4, MCHC 32.3, RDW Coeff of Kar 14.1, Plt Count 270, Immature Gran % (Auto) 0.4, Neut % (Auto) 73.1, Lymph % (Auto) 16.7, Bowie % (Auto) 9.2, Eos % (Auto) 0.4, Baso % (Auto) 0.2, Immature Gran # (Auto) 0.0, Neut # (Auto) 7.7 H, Lymph # (Auto) 1.8, Bowie # (Auto) 1.0, Eos # (Auto) 0.0, Baso # (Auto) 0.0 ASSESSMENT: Please see below. 1. Headache 2. Chronic sinusitis 3. COPD 4. Pulmonary nodules left upper lobe PLAN: 1. Discharge home 2. Resume Augmentin 875mg twice a day 3. Flonase two sprays twice a day 4. Appointment with Dr. Wayne 5. Fioricet 1-2 tablets PRN Plan and coordination of the patient's care discussed in the presence of Sk[employer] Toe and nurse. SCRIBED BY: VAISHNAVI IVERSON Bottle Washer scribed while in presence of service performed by Dr. Ross/Niesha Lee APRN on 08/26/18 ([id number])
--- NOTE | 2018-08-26 13:58 | PN ---
DATE OF SERVICE: 08/24/18 SUBJECTIVE: 63-year-old white male hospitalized with headache, migraine type. The patient's headache is a lot better, practically says there is no headache anymore. The patient had an MRI done which practically showed no hemorrhage, no tumor, no hydrocephalus. Incidental finding is right complete occlusion of carotid artery with retrograde filling of vertebral arteries. The patient never had a stroke as this finding known for the past several months. The patient's cardiovascular status is stable. REVIEW OF SYSTEMS: CONSTITUTIONAL: No night sweats. No fatigue, malaise, lethargy. No fever or chills. HEENT: Eyes: No visual changes. No eye pain. No eye discharge. ENT: No runny nose. No epistaxis. No sinus pain. No sore throat. No odynophagia. No congestion. RESPIRATORY: No cough, no congestion. No hemoptysis. No shortness of breath. CARDIOVASCULAR: No angina symptoms. No CHF symptoms. No atypical chest pain for CAD. No palpitations. No PND. No orthopnea. GASTROINTESTINAL: No abdominal pain. No nausea or vomiting. No diarrhea or constipation. No hematemesis. No hematochezia. GENITOURINARY: No urgency. No frequency. No dysuria. No hematuria. No obstructive symptoms. No discharge. No pain. No significant abnormal bleeding. MUSCULOSKELETAL: No musculoskeletal pain; no joint swelling. NEUROLOGICAL: No headache. No neck pain. No syncope. No seizures. No dizziness. PSYCHIATRIC: Not anxious. No depression. No suicidal thoughts. No homicidal thoughts. SKIN: No rash. No lesions. No wounds. ENDOCRINE: No unexplained weight loss. No weight gain. HEMATOLOGIC/LYMPHATIC: No anemia. No purpura. No petechiae. No prolonged or excessive bleeding. No palpable lymph nodes. PHYSICAL EXAMINATION: VITAL SIGNS: Temperature 97.6, pulse 85, respiratory rate 18, BP 110/82. Pulse ox 96%. HEENT: Head normocephalic, atraumatic. Eyes: Extraocular muscles are intact. Pupils are equal, round and reactive to light and accommodation. Ears: No lesions. Nose appeared normal. Throat: No exudate or erythema. NECK: Supple. No JVD, no carotid bruit. No lymphadenopathy or thyromegaly. LUNGS: Clear to auscultation. Percussion note normal. Chest symmetrical. HEART: S1, S2, no S3. No murmurs. No cyanosis or clubbing. No ascites. Pulses: Dorsalis pedis and posterior tibial pulses +1 to +2 bilaterally. ABDOMEN: Soft. Nontender. Bowel sounds active. No CVA tenderness. No mass felt. EXTREMITIES: No edema. Full range of motion of all extremities, equal. NEUROLOGIC: No focal deficit. Cranial nerves II through XII are grossly intact. No headache, no double vision or headache. SKIN: Not dry. Intact. Turgor - normal. LYMPHATIC: No palpable lymph nodes/no lymphedema. MUSCULOSKELETAL: Normal joints with no swelling. Muscle tone is normal. ASSESSMENT: 1. Headache, migraine type seems to be under control. 2. Severe chronic lung disease, pulmonary nodule. 3. Coronary artery disease. 4. Congestive heart failure. 5. Complete carotid occlusion right sided internal carotid artery. 6. Heavy smoker, counseling for smoking done. The patient is still going out and smoking. 7. Blood sugar was 205, has diabetes and is noncompliant of diet. Also takes caffeine in excess. PLAN: Will refer this patient to neurologist in case the headaches continue. The patient was seen in the emergency room three times prior to hospitalization. Neurological status is normal. TIME SPENT: More than 30 minutes. Plan and coordination of the patient's care discussed in the presence of nurse. SILVINO
--- NOTE | 2018-08-26 13:59 | CM.DICTOOL ---
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 S/P FUSION SURGERY NON COMPLIANT HEART CATH 08/22 NECK FUSION 09/19 EYE SURGERY (METAL REMOVAL) PFT 07/21: MODERATE TO SEVERE COPD LAST VITALS Temp Pulse Resp BP Pulse Ox 97.4 F L 80 19 121/60 94 L 08/26/18 05:03 08/26/18 05:03 08/26/18 08:00 08/26/18 05:03 08/26/18 05:03 TAKE THESE MEDICATIONS AT HOME Albuterol Sulfate (Albuterol 0.083% Neb) 1 vial NEB DAILY PRN PRN Reason: Bronchodialation Last Admin: Unknown Albuterol Sulfate (ProAir Hfa) 2 puff ING QID PRN PRN Reason: wheezing/SOA Last Admin: Unknown Amoxicillin/Potassium Clav (Augmentin 875-125mg tab) 1 tab PO BID Last Admin: Unknown Budesonide/Formoterol Fumarate (Symbicort 160-4.5 Mcg Inhaler) 2 puff IH BID [facility] Last Admin: 08/26/18 09:49 Dose: 2 puff Clopidogrel Bisulfate (Plavix) 75 mg PO DAILY [facility] Last Admin: 08/26/18 09:51 Dose: 75 mg Empagliflozin (Jardiance) 25 mg PO DAILY [facility] Last Admin: 08/26/18 09:52 Dose: 25 mg Losartan Potassium (Cozaar) 50 mg PO DAILY [facility] Last Admin: 08/26/18 09:52 Dose: 50 mg Metoprolol Tartrate (Lopressor) 12.5 mg PO BID [facility] Last Admin: 08/26/18 09:50 Dose: 12.5 mg Montelukast Sodium (Singulair) 10 mg PO DAILY PRN PRN Reason: Allergy Symptoms Pravastatin Sodium (Pravachol) 40 mg PO DAILY [facility] Last Admin: 08/26/18 09:51 Dose: 40 mg Tiotropium Wendell (Spiriva) 1 cap IH BEDTIME [facility] Last Admin: 08/25/18 21:00 Dose: 1 cap Tramadol HCl (Ultram) 50 mg PO BID PRN PRN Reason: Pain Last Admin: 08/26/18 03:23 Dose: 50 mg ALLERGIES No Known Allergies Allergy (Verified 08/21/18 10:12) DISCONTINUED MEDICATIONS NONE NEW PRESCRIPTIONS: FIORICIT 325/50/40 MG 1-2 TABLETS BY MOUTH EVERY FOUR HOURS NEEDED FOR HEADACHE. TAKE ONE TABLET AT ONSET OF HEADACHE, IF NO IMPROVEMENT IN ONE HOUR MAY TAKE ANOTHER TABLET. FLONASE 2 SPRAYS NASALLY TWICE A DAY PREDNISONE 10 MG PO DAILY FOR FIVE DAYS SMOKING: HEAVY SMOKER DISEASE SPECIFIC EDUCATION: HEADACHE SINUSITIS SMOKING CESSATION HOME OXYGEN USE FOLLOW UP APPOINTMENT WITH DR. CHRIS LAB REVIEW: 08/26/18 05:25 08/26/18 05:25 08/26/18 05:25: Sodium 135.8, Potassium 4.23, Chloride 97.5 L, Carbon Dioxide 33.5 H, Anion Gap 9.03, BUN 24.0 H, Creatinine 0.52 L, Estimated GFR (MDRD) 161.00, BUN/Creatinine Ratio 46.15, Glucose 148.3 H, Calcium 8.28 L, Total Bilirubin 0.37, AST 29.1, ALT 25.4, Alkaline Phosphatase 56.8, Total Protein 5.80 L, Albumin 3.92, Globulin 1.88, Albumin/Globulin Ratio 2.08 08/26/18 05:25: WBC 10.51 H, RBC 3.59 L, Hgb 10.9 L, Hct 33.7 L, MCV 93.9, MCH 30.4, MCHC 32.3, RDW Coeff of Kar 14.1, Plt Count 270, Immature Gran % (Auto) 0.4, Neut % (Auto) 73.1, Lymph % (Auto) 16.7, Cuming % (Auto) 9.2, Eos % (Auto) 0.4, Baso % (Auto) 0.2, Immature Gran # (Auto) 0.0, Neut # (Auto) 7.7 H, Lymph # (Auto) 1.8, Cuming # (Auto) 1.0, Eos # (Auto) 0.0, Baso # (Auto) 0.0 PLAN: DISCHARGE HOME TODAY 08/26/2018 DIET: DIABETIC ACTIVITY: UP TOLERATED FOLLOW UP APPOINTMENT WITH DR. JULIEN ON SundayAugust AT 145 PM. FOLLOW UP APPOINTMENT WITH DR. CHRIS ON SundaySeptember AT [address] OF [address] REPORT AND DISC TO THIS APPOINTMENT. CODE STATUS: DO NOT RESUSCITATE ALERT, ORIENTED TIMES THREE. MR. LEONARD IS AGREEABLE TO DISCHARGE HOME TODAY. HE IS INDEPENDENT WITH ALL ACTIVITIES OF DAILY LIVING. HE DOES NOT REQUIRE ASSISTIVE DEVICE FOR AMBULATION. HE HAS HOME OXYGEN THAT HE WEARS AT NIGHT. APPETITE HAS BEEN GOOD WITH MEAL INTAKE 50%-90%. LAST BM 08/25. HYDRATION STATUS IS ADEQUATE. SKIN WARM, DRY, INTACT. DR. ROBERT JULIEN MD GEOFF FLOOD APRN
--- NOTE | 2018-08-26 14:23 | PN ---
DATE OF SERVICE: 08/25/18 SUBJECTIVE: Mr. Olguin was seen and examined today and the was present in the room. The patient has beginning of periorbital headache and given Toradol IV along with Decadron 1 cc with Dilaudid. Neurological status is normal. REVIEW OF SYSTEMS: CONSTITUTIONAL: The patient was doing fine. No night sweats. No fatigue, malaise , lethargy. No fever or chills. HEENT: Eyes: No visual changes. No eye pain. No eye discharge. ENT: No runny nose. No epistaxis. No sinus pain. No sore throat. No odynophagia. No congestion. RESPIRATORY: No cough, no congestion. No hemoptysis. No shortness of breath. CARDIOVASCULAR: No angina symptoms. No CHF symptoms. No atypical chest pain for CAD. No palpitations. No PND. No orthopnea. GASTROINTESTINAL: No abdominal pain. No nausea or vomiting. No diarrhea or constipation. No hematemesis. No hematochezia. GENITOURINARY: No urgency. No frequency. No dysuria. No hematuria. No obstructive symptoms. No discharge. No pain. No significant abnormal bleeding. MUSCULOSKELETAL: No musculoskeletal pain; no joint swelling. NEUROLOGICAL: No headache. No neck pain. No syncope. No seizures. No dizziness. PSYCHIATRIC: Not anxious. No depression. No suicidal thoughts. No homicidal thoughts. SKIN: No rash. No lesions. No wounds. ENDOCRINE: No unexplained weight loss. No weight gain. HEMATOLOGIC/LYMPHATIC: No anemia. No purpura. No petechiae. No prolonged or excessive bleeding. No palpable lymph nodes. PHYSICAL EXAMINATION: HEENT: Head normocephalic, atraumatic. Eyes: Extraocular muscles are intact. Pupils are equal, round and reactive to light and accommodation. Ears: No lesions. Nose appeared normal. Throat: No exudate or erythema. NECK: Supple. No JVD, no carotid bruit. No lymphadenopathy or thyromegaly. LUNGS: Clear to auscultation. Percussion note normal. Chest symmetrical. HEART: S1, S2, no S3. No murmurs. No cyanosis or clubbing. No ascites. Pulses: Dorsalis pedis and posterior tibial pulses +1 to +2 bilaterally. ABDOMEN: Soft. Nontender. Bowel sounds active. No CVA tenderness. No mass felt. EXTREMITIES: No edema. Full range of motion of all extremities, equal. NEUROLOGIC: Complete neurological status normal. No focal deficit. Cranial nerves II through XII are grossly intact. No headache, no double vision or headache. SKIN: Not dry. Intact. Turgor - normal. LYMPHATIC: No palpable lymph nodes/no lymphedema. MUSCULOSKELETAL: Normal joints with no swelling. Muscle tone is normal. The patient has continued to go out and smoke. Strongly advised to quit smoking. The patient has right internal carotid artery occlusion, he knows about it. Echocardiogram done today to evaluate shortness of breath and worsening of respiratory status. Echo showed enlarged RV cavity, LVH, normal LV contractility , borderline LV cavity enlargement. Mildly enlarged LA cavity. Valves are normal. ASSESSMENT: 1. Headaches could be migraine, could be cluster headache. PLAN: 1. Will try high flow oxygen. CONDITION: Stable. The patient's prognosis is poor considering his multiple medical problems and noncompliance of diet, lifestyle, medications. He admitted that most of the time he doesn't take half of his medication and if he is feeling good he forgets to take medications. TIME SPENT: More than 30 minutes. Plan and coordination of the patient's care discussed in the presence of nurse. SILVINO
--- NOTE | 2018-08-26 14:34 | PN ---
DATE OF SERVICE: 08/26/18 SUBJECTIVE: Mr. Olguin was seen and examined with the nurse practitioner. He is going to be discharged home. He is feeling a lot better. No neurological deficit. For his headaches which seems to be maybe cluster, advised high flow oxygen with Fiorcet and he can mix it with Tramadol. The side effects discussed with him. He is strongly advised to quit smoking. His prognosis is poor. His lifestyle is poor. He is noncompliant of medications, followup and lifestyle. Counseling for smoking done. For the pulmonary nodule, he is going to see pulmonary M.D. and get followup with him. The patient's pulmonary M.D. is in [place]. His stump shooter is at [facility]. Strongly advised to followup with them closely. TIME SPENT: More than 30 minutes. Plan and coordination of the patient's care discussed in the presence of nurse. SILVINO
--- NOTE | 2018-08-27 09:18 | DS ---
DATE OF SERVICE: 08/26/18 FINAL DIAGNOSIS: 1. HEADACHE 2. CHRONIC SINUSITIS 3. PULMONARY NODULES LEFT UPPER LOBE 4. COPD 5. CORPULMONALE 6. HEART MURMUR 7. SEVERE CHRONIC LUNG DISEASE CURRENT HEAVY SMOKER 8. PNEUMONIA 9. SLEEP APNEA 10. TYPE 2 DM (HGB A1C 7.2 06/25) 11. HYPERTENSION 12. DYSLIPIDEMIA 13. GERD 14. BENIGN PROSTATIC HYPERPLASIA 15. DJD SPINE 16. GENERALIZED OSTEOARTHRITIS OF THE C-SPINE S/P FUSION SURGERY 17. NON COMPLIANT 18. HEART CATH 08/22 19. NECK FUSION 09/19 20. EYE SURGERY (METAL REMOVAL) 21. PFT 07/21 MODERATE TO SEVERE COPD LAST VITAL SIGNS: Temperature 97.4, pulse 80, respiratory rate 19, BP 121/60, pulse ox 94 DISCHARGE INSTRUCTIONS: 1. FOLLOW UP APPOINTMENT WITH DR. JULIEN ON SundayAugust AT 145 PM. 2. FOLLOW UP APPOINTMENT WITH DR. WAYNE ON SundaySeptember AT [address] OF [address] REPORT AND DISC TO THIS APPOINTMENT. 3. CODE STATUS: DO NOT RESUSCITAT MEDICATIONS AT DISCHARGE: Albuterol Sulfate (Albuterol 0.083% Neb) 1 vial NEB DAILY PRN PRN Reason: Bronchodialation Last Admin: Unknown Albuterol Sulfate (ProAir Hfa) 2 puff ING QID PRN PRN Reason: wheezing/SOA Last Admin: Unknown Amoxicillin/Potassium Clav (Augmentin 875-125mg tab) 1 tab PO BID Last Admin: Unknown Budesonide/Formoterol Fumarate (Symbicort 160-4.5 Mcg Inhaler) 2 puff IH BID [facility] Last Admin: 08/26/18 09:49 Dose: 2 puff Clopidogrel Bisulfate (Plavix) 75 mg PO DAILY [facility] Last Admin: 08/26/18 09:51 Dose: 75 mg Empagliflozin (Jardiance) 25 mg PO DAILY [facility] Last Admin: 08/26/18 09:52 Dose: 25 mg Losartan Potassium (Cozaar) 50 mg PO DAILY [facility] Last Admin: 08/26/18 09:52 Dose: 50 mg Metoprolol Tartrate (Lopressor) 12.5 mg PO BID [facility] Last Admin: 08/26/18 09:50 Dose: 12.5 mg Montelukast Sodium (Singulair) 10 mg PO DAILY PRN PRN Reason: Allergy Symptoms Pravastatin Sodium (Pravachol) 40 mg PO DAILY [facility] Last Admin: 08/26/18 09:51 Dose: 40 mg Tiotropium [place] (Spiriva) 1 cap IH BEDTIME [facility] Last Admin: 08/25/18 21:00 Dose: 1 cap Tramadol HCl (Ultram) 50 mg PO BID PRN PRN Reason: Pain Last Admin: 08/26/18 03:23 Dose: 50 mg NEW PRESCRIPTIONS: FIORICIT 325/50/40 MG 1-2 TABLETS BY MOUTH EVERY FOUR HOURS NEEDED FOR HEADACHE. TAKE ONE TABLET AT ONSET OF HEADACHE, IF NO IMPROVEMENT IN ONE HOUR MAY TAKE ANOTHER TABLET. FLONASE 2 SPRAYS NASALLY TWICE A DAY PREDNISONE 10 MG PO DAILY FOR FIVE DAYS DISCONTINUED MEDICATIONS: NONE DIET INSTRUCTIONS: DIABETIC ACTIVITY: UP TOLERATED SMOKING: HEAVY SMOKER DISEASE SPECIFIC EDUCATION: HEADACHE SINUSITIS SMOKING CESSATION HOME OXYGEN USE FOLLOW UP APPOINTMENT WITH DR. WAYNE [facility] COURSE: This 63-year-old white male was a direct admit from our office. He had been to the emergency room twice in the past week with intractable headache, nausea, cough and congestion. He thought he had had an abscessed tooth. CT and MRI of the head did not show any abscess. He did have a tooth pulled but still persisted with the headache. On the day of admission he was having some shortness of breath. He was admitted, placed on IV fluids. There was some chronic maxillary sinusitis noted on the MRI. We started him on Rocephin 1 gm IV daily along with Albuterol neb treatments. All of his home medications were continued. CT of the chest revealed a left upper lobe nodule. It is unclear whether this is new or unchanged from previous. Case management has arranged for him to have an appointment with his quality review specialist on the , Dr. Wayne. I have discussed this finding with him. He is a heavy smoker, continues to smoke despite his oxygen dependence. A combination of IV Toradol helped relieve his pain. Will send him home. He has Tramadol 50 mg b.i.d. and then also Fioricet one to two tablets q.4 to 6 hours p.r.n. I am also going to send him home on Flonase two puffs twice daily for the sinusitis. He has Augmentin that he is also supposed to resume at 75 mg b.i.d. Information has been given regarding smoking cessation. We have discussed tension headaches. Will followup with him in the office next week and he is discharged in stable condition. TIME SPENT: More than 60 minutes. SILVINO
--- NOTE | 2018-08-27 13:44 | HP ---
DATE OF SERVICE: 08/23/18 HISTORY OF PRESENT ILLNESS: 63-year-old White male seen three times in the Emergency Department with a headache, sinusitis ?/ENT referral, still headache times two weeks. No visual problems. Appetite is okay. He has frontal/maxillary area pain. PAST MEDICAL HISTORY: COPD Hypertension DJD spine Chronic respiratory failure on CAD Chronic bronchitis Elevated PSA Dyslipidemia C-spine osteoarthritis Lung nodule Blocked carotid artery Left carotid artery 65% PAST SURGICAL HISTORY: Heart catheterization, 08/22 Neck surgery, September 2015 EGD and colonoscopy Right little finger amputation REVIEW OF SYSTEMS: CONSTITUTIONAL: Positive for fatigue. No fever. HEENT: Sinus drainage. No sore throat. RESPIRATORY: Positive for chronic cough. No hemoptysis. CARDIOVASCULAR: Positive for palpitations. Positive for shortness of breath as usual. No atypical chest pain for coronary artery disease. No angina, CHF symptoms. GASTROINTESTINAL: No melena or abdominal pain. No GERD. GENITOURINARY: No hematuria, no prostatism, no polyuria. ASIC VERIFICATION ENGINEER: Positive for headache. No blackout, no dizziness, no double vision. MUSCULOSKELETAL: Osteoarthritis pain. ENDOCRINE: No weight loss, no weight gain. SKIN: Not dry, no rash. PSYCHIATRIC: Aanxious. No depression, no suicidal thoughts, no homicidal thoughts. SOCIAL HISTORY: Smokes one pack per day times 46 years; no alcohol use. The patient is . He is retired from the [employer]. He has four children. FAMILY HISTORY: Father ; mother . He has a half brother. No sisters. MEDICATIONS: (HOME) ASA 81 mg daily Singulair 10 mg daily Metformin 1000 mg b.i.d. Diltiazem 60 mg b.i.d. Losartan 50 mg daily Spiriva inhalation Symbicort 160/4.5 daily 02 2L/NC Albuterol neb treatment Jardiance 25 mg p.o. daily Metoprolol 1/2 b.i.d. Tramadol 50 mg p.r.n. b.i.d. Plavix 75 mg daily Pravastatin 40 mg Isosorbide 30 mg daily ALLERGIES: BYSTOLIC, CRESTOR, KEFLEX PHYSICAL EXAMINATION: V/S: Pulse 111, BP 120/62, temperature 97.9, 02 sat 94%, on 02 2L/NC. Height 6'0 , weight 165.2, BMI 22.4. GENERAL APPEARANCE: Oriented times three. HEENT: Normal. NECK: No JVP, no bruits. RESPIRATORY: Decreased breath sounds. Mild expiratory wheezes. CARDIOVASCULAR: S1, S2, no S3, no murmurs. No cyanosis, clubbing. No ascites. GI/ABDOMEN: No tenderness. Bowel sounds are active. EXTREMITIES: No edema, pulses +1, equal. ASIC VERIFICATION ENGINEER: Deep tendon reflexes, sensory, motor and gait all normal. RECTAL/PROSTATE: Prostate 05/23 Dr. Sousa 4.2. Colonoscopy 2006, Dr. Mckeon. ASSESSMENT: 1. Headache, migraine ? 2. Leg edema. 3. Bronchitis (chronic). 4. Noncompliant of all aspects of medical care. 5. CAD by catheterization - [facility] - Dr. Cook 08/22 6. Cor pulmonale. 7. Chronic respiratory failure on - smoking. 8. COPD. 9. Diabetes mellitus Type 2, A1C 7.2 on 06/25. 10. Hypertension. 11. DJD spine. 12. Elevated PSA, Dr. Sousa follows. 13. Dyslipidemia. 14. C-spine osteoarthritis. 15. Lung nodule. 16. Chronic bronchitis. 17. Heart catheterization 08/22. 18. Right carotid artery - blocked. 19. Left carotid artery 65%. PLAN: 1. Admit 2. Regular diet 3. Routine telemetry orders 4. No cardiac markers 5. Sed rate/CRP 6. Toradol 30 mg IV now and 8 hourly 7. Decadron 2 cc IM now 8. MRI of brain with contrast today 9. Continue all medications 10. ABG with oxygen 11. Sliding scale with coverage TIME SPENT: More than 70 minutes. MTDD
== END 2018-08-26 14:13 | disposition home or self-care (01) | DRG 102 ==
LOC: MEDSURG B 10:54
PROVIDERS: ADMIT Internal Medicine; ATTEND Internal Medicine
DX: G44.209 Tension-type headache, unspecified, not intractable (principal); J18.9 Pneumonia, unspecified organism; J32.9 Chronic sinusitis, unspecified; J44.9 Chronic obstructive pulmonary disease, unspecified; I50.9 Heart failure, unspecified; I10 Essential (primary) hypertension; E11.9 Type 2 diabetes mellitus without complications; E78.5 Hyperlipidemia, unspecified; K21.9 Gastro-esophageal reflux disease without esophagitis; N40.0 Benign prostatic hyperplasia without lower urinary tract symptoms; M47.9 Spondylosis, unspecified; M15.9 Polyosteoarthritis, unspecified; G47.30 Sleep apnea, unspecified; R91.8 Other nonspecific abnormal finding of lung field; R01.1 Cardiac murmur, unspecified; R60.0 Localized edema; Z91.19 Patient's noncompliance with other medical treatment and regimen; Z99.81 Dependence on supplemental oxygen; Z72.0 Tobacco use
CPT/HCPCS: 36415; 80053; 81001; 82803; 82962; 85025; 85651; 86141; 93005; 93010; 94640

== ENCOUNTER 2018-08-29 19:45 | Outpatient (CLI) ==
[2018-08-29 20:09] VITALS: BMI 22.7
== END 2018-08-29 19:55 | disposition critical access hospital (66) ==
LOC: AMBL 19:45
PROVIDERS: ATTEND Family Medicine
DX: R51 Headache (principal); R07.89 Other chest pain; Z99.81 Dependence on supplemental oxygen

== ENCOUNTER 2018-08-29 20:00 | Emergency (ER) | payer OTHER ==
[2018-08-29 20:09] VITALS: BP 126/72; TEMP 98.9; BMI 22.7
[2018-08-29] MEDS ORDERED: ZOFRAN 4 MG/2 ML IM STA (20:09)
[2018-08-29] MEDS ORDERED: DILAUDID 1 MG/ML SYRINGE IM STA (20:09)
--- NOTE | 2018-08-29 20:12 | ED.PDOC ---
General ED Provider: Dr. RUBEN BLANDON-ER Chief Complaint: Headache Stated Complaint: hes got a headache---dr conn said his heart and lung are "shot"---we dont want any testing ---ws just want him comfortable Time Seen by Physician: 20:10 Mode of Arrival: Ambulance Information Source: Patient, EMT Exam Limitations: No limitations Primary Care Provider: RACHEL CONN Nursing and Triage Documentation Reviewed and Agree: Yes Does patient meet sepsis criteria?: No System Inflammatory Response Syndrome: Not Applicable Sepsis Protocol: For patient's 13 years and over: Temp is 96.8 and below OR 101 and greater Pulse >90 BPM Resp >20/minute Acutely Altered Mental Status Are patient's symptoms suggestive of a new infection, such as: -Pneumonia -Skin, Soft Tissue -Endocarditis -UTI -Bone, Joint Infection -Implantable Device -Acute Abdominal Infection -Wound Infection -Meningitis -Blood Stream Catheter Infection -Unknown Neurological Complaint Exam - Headache Complaint/Exam Onset: Gradual Duration: several hours Symptoms Are: Still present Timing: Constant Worst Headache Ever: No Initial Severity: Mild Current Severity: Moderate Location: Diffuse Character: Reports: Dull, Throbbing, Typical headache Associated Signs and Symptoms: Denies: Dizziness, Seizure, Nausea, Vomiting, Sinus pressure, Fever, Neck pain, Neck stiffness, Decreased LOC, Visual changes Fundoscopic Exam: Present: Normal Findings Temporal Artery Tenderness: Present: None Sinus Tenderness: Present: None TMJ Tenderness: Present: None Glascow Coma Scale (see protocol): 15 Meningeal Signs Positive: No Pain on Passive Flexion-Positive Kernig's: No ROM Limited In: No Limitiations Focal Weakness: Present: None Focal Sensory Loss: Present: None Gait: Normal Nystagmus Present: No Gag Reflex Present: No [id number]: Normal Findings Romberg Test Positive: No Babinski Sign: Negative Right, Negative Left Heel to Toe Normal: Yes Differential Diagnoses: Tension Headache, Other Review of Systems - Review Of Systems Constitutional: Reports: No symptoms Eyes: Reports: No symptoms Ears, Nose, Mouth, Throat: Reports: No symptoms Respiratory: Reports: Cough, Short of air Cardiac: Reports: No symptoms GI: Reports: No symptoms : Reports: No symptoms Musculoskeletal: Reports: No symptoms Skin: Reports: No symptoms Neurological: Reports: Headache Endocrine: Reports: No symptoms Hematologic/Lymphatic: Reports: No symptoms All Other Systems: Reviewed and Negative Past Medical History - Past Medical History Previously Healthy: No Endocrine: Reports: DM 2 Cardiovascular: Reports: Hypertension Respiratory: Reports: COPD, Asthma Hematological: Reports: None Gastrointestinal: Reports: None Genitourinary: Reports: None Neuro/Psych: Reports: None Musculoskeletal: Reports: Arthritis, Back Pain Cancer: Reports: None Other Pertinent Past Medical History: HEART MURMUR/NECK PROBLEMS. Sinusitis - Surgical History General Surgical History: Reports: None - Family History Family History: Reports: Unknown - Social History Smoking Status: Current every day smoker, Heavy tobacco smoker Hx Substance Use: No Alcohol Screening: None - Immunizations Tetanus Shot up to Date: Yes Physical Exam - Physical Exam Appearance: Well-appearing, No pain distress, Well-nourished Eyes: JACIEL, EOMI, Conjunctiva clear ENT: Ears normal, Nose normal, Oropharynx normal Neck: Supple Respiratory: Airway patent, Breath sounds clear, Breath sounds equal, Respirations nonlabored Cardiovascular: RRR, Pulses normal, No rub, No murmur GI/: Soft, Nontender, No masses, Bowel sounds normal, No Organomegaly Musculoskeletal: Normal strength, ROM intact, No edema, No calf tenderness Skin: Warm, Dry, Normal color Neurological: Oriented Psychiatric: Affect appropriate, Mood appropriate Critical Care Note - Critical Care Note Total Time (mins): 0 Course - Course Orders, Labs, Meds: Orders Category Date Time Status Hydromorphone HCl [Dilaudid 1 mg/ml Syringe] MEDS 08/29/18 20:09 Stat 1 mg IM ONCE STA Ondansetron HCl/Pf [Zofran 4 mg/2 ml] MEDS 08/29/18 20:09 Stat 4 mg IM ONCE STA the patients was insistent on no testing and they want comfort measures only---"i just want him made comfortable")--he has DNR status Vital Signs: Temp Pulse Resp BP Pulse Ox 08/29/18 20:03 98.9 F 94 H 20 126/72 98 Departure - Departure Time of Disposition: 20:12 Disposition: HOME SELF-CARE Discharge Problem: Headache Instructions: Acute Headache (ED) Condition: Poor Pt referred to PMD for follow-up: Yes IPMP verified?: No Additional Instructions: f/u with dr conn Allergies/Adverse Reactions: Allergies No Known Allergies Allergy (Verified 08/21/18 10:12) Home Medications: Ambulatory Orders Albuterol Sulfate [Proair Hfa] 2 puff INH QID PRN 10/14/13 Empagliflozin [Jardiance] 25 mg PO DAILY 06/11/14 Tiotropium [place] [Spiriva] 1 cap IH BEDTIME 06/11/14 Budesonide/Formoterol Fumarate [Symbicort 160-4.5 Mcg Inhaler] 2 puff IH BID Losartan Potassium [Cozaar] 50 mg PO DAILY 08/01/15 Montelukast Sodium 10 mg PO DAILY PRN 08/01/15 Clopidogrel Bisulfate [Clopidogrel] 75 mg PO DAILY 10/15/17 Metoprolol Tartrate [Lopressor] 12.5 mg PO BID 08/05/18 Tramadol HCl [Ultram] 50 mg PO BID PRN 08/05/18 Pravastatin Sodium [Pravachol] 40 mg PO DAILY 08/15/18 Amoxicillin/Potassium Clav [Augmentin 875-125 mg Tab] 1 tab PO Q12HR #20 tablet 08/21/18 Albuterol Sulfate 0.083% Neb [Albuterol 0.083% Neb] 1 vial INH DAILY PRN Butalb/Acetaminophen/Caffeine [Fioricet] 1 - 2 tab PO Q4H PRN #1 tablet Fluticasone Propionate [Flonase] 2 spray NS BID #1 spray.susp 08/26/18 Prednisone 10 mg PO DAILYWM #5 tablet 08/26/18 Disposition Discussed With: Patient, Family
== END 2018-08-29 21:10 | disposition home or self-care (01) ==
LOC: ED 20:00
DX: R51 Headache (principal); R05 Cough; R06.02 Shortness of breath; E11.9 Type 2 diabetes mellitus without complications; I10 Essential (primary) hypertension; F17.210 Nicotine dependence, cigarettes, uncomplicated; Z79.899 Other long term (current) drug therapy
CPT/HCPCS: 96372; 99283